=== PATIENT | male | born 1975 | race Caucasian/White ===

== ENCOUNTER 2022-02-01 08:53 | Observation (INO) | payer OTHER, MEDICAID, SELFPAY ==
[2022-02-01] VITALS (13 sets, daily range): BP systolic 101–141; BP diastolic 58–89; PULSE 70–88; RESP 12–24; TEMP 35.6–37.2; O2SAT 91–100; BMI 27.3
--- NOTE | 2022-02-01 09:39 | DI.RAD.S_ITS ---
PROCEDURE: XR HAND LT MIN 3V INDICATIONS: swelling TECHNIQUE: 3 views of the hand(s) acquired. COMPARISON: None. FINDINGS: Bones: No fractures or dislocations. Carpal bones are normally aligned. No suspicious bony lesions. Soft tissues: No suspicious soft tissue calcifications. Soft tissue swelling. No soft tissue gas or radiopaque foreign body. IMPRESSION: Soft tissue swelling. No evidence of gas-forming organism. No acute bony abnormality noted. Dictated by: Ephraim Wilde M.D. on 02/01/2022 at 10:01 Approved by: Ephraim Wilde M.D. on 02/01/2022 at 10:02
--- NOTE | 2022-02-01 10:24 | ED_ITS ---
HPI - Skin/Abscess/Foreign Bdy General Chief complaint: Skin/Abscess/Foreign Body Stated complaint: Infection on both hands Time Seen by Provider: 02/01/22 09:40 Source: patient Mode of arrival: Ambulatory Limitations: no limitations History of Present Illness HPI narrative: 46-year-old male smoker with history of IV drug abuse (last used 1 year ago) presents for evaluation of left hand pain swelling and redness in the absence of injury. He states that about 3 or 4 days ago he started having pain in his and which has worsened until today. He now has significant swelling and large blisters on the dorsum of his hand with red streaks up his arm. He can not make a fist due to pain. He denies any fever or chills. He denies any illicit drug use in the past year. He denies any medical history. He last had solid food at about 8:00 a.m. and has had some water in the aftermath. He had been prescribed Keflex a few days ago but there was some miscommunication and he had been unable to pick remover the prescription Related Data Allergies Allergy/AdvReac Type Severity Reaction Status Date / Time No Known Drug Allergies Allergy Verified 02/01/22 10:42 Review of Systems Review of Systems Narrative: GENERAL: Denies chills, fatigue, malaise, fever, sweats. HEENT: Denies sinus pain, ear pain, sore throat, difficulty swallowing, dizziness. RESPIRATORY: Denies dyspnea, cough, wheezing, hemoptysis, sputum. CARDIOVASCULAR: Denies chest pain, palpitations, orthopnea, edema, GASTROINTESTINAL: Denies nausea, vomiting, abdominal pain, diarrhea, consti pation, melena. : Denies dysuria, frequency, incontinence, hematuria, urinary retention. MUSCULOSKELETAL: See HPI SKIN: See HPI NEUROLOGIC: Denies weakness, headache, numbness, change in speech, confusion, seizures, incoordination. PSYCHIATRIC: No concerning psychosocial issues. 12 point review of systems is negative except for those stated above Patient History Social History household members: none Smoking Status: Current every day smoker alcohol intake: current Smoking Status: Current every day smoker alcohol intake frequency: 0-2 drinks per day Substance Use Type: former substance user Exam Narrative Exam Narrative: GENERAL: [46] year old patient appears stated age. Well-developed patient, in mild distress. GCS 15 HEAD: Atraumatic. Normocephalic. EYES: Pupils equal round and reactive. Extraocular motions intact. No scleral icterus. No injection or drainage. ENT: Nose without bleeding, purulent drainage. Throat without erythema, tonsillar hypertrophy or exudate. Airway patent. NECK: Trachea midline. Non tender CARDIOVASCULAR: Regular rate and rhythm without murmurs, gallops, or rubs. RESPIRATORY: Clear to auscultation. Breath sounds equal bilaterally. No wheezes, rales, or rhonchi. GASTROINTESTINAL: Abdomen soft, non-tender, nondistended. EXTREMITIES: Left hand with significant swelling and erythema particularly on the dorsum of the hand with a few quarter-sized hemorrhagic blisters. He is unable to make a fist secondary to pain, there is pain on palpation of the palmar surface. He does have erythema extending to thirds up the forearm. BACK: Nontender without deformity or crepitance. No flank tenderness. NEURO: AOx3. SKIN: No rash or erythema of visible areas Initial Vital Signs Initial Vital Signs: Vital Signs Temperature 98.8 F 02/01/22 09:33 Pulse Rate 88 02/01/22 09:33 Respiratory Rate 18 02/01/22 09:33 Blood Pressure 141/80 H 02/01/22 09:33 Pulse Oximetry 97 02/01/22 09:33 Oxygen Delivery Method 02/01/22 09:33 Course Orders Ordered: ED Orders 02/01/22 10:23 C-Reactive Protein Quant Stat Complete Blood Count AUTO DIFF Stat Comprehensive Metabolic Panel Stat 02/01/22 10:43 COVID19 -Nasal RAPID/Pre-Proc Stat 02/01/22 11:49 Consult to Anesthesiology Routine 02/01/22 12:00 Blood Culture Stat Erythrocyte Sedimentation Rate Routine Aspirin (Aspirin Ec 81 Mg Tablet) 81 mg PO BID WINNIE Hydromorphone HCl (Hydromorphone 0.5 Mg Inj) 0.5 mg IV Q1H PRN PRN Reason: Pain, Moderate (4-6) Hydromorphone HCl (Hydromorphone 0.5 Mg Inj) 0.2 mg IV Q1H PRN PRN Reason: Pain, Mild (1-3) Lactated Ringer's (Lactated Ringers) 1,000 mls @ 125 mls/hr IV CONT WINNIE Last Admin: 02/01/22 18:35 Dose: 125 mls/hr Documented By: Cefazolin Sodium/Dextrose (Ancef) 100 mls @ 200 mls/hr IV Q8H [facility] Stop: 02/04/22 20:29 Naloxone HCl (Naloxone 0.4 Mg/Ml Vial) 0.2 mg IV Q2MIN PRN PRN Reason: Opiate Reversal Nicotine (Nicotine 14 Patch) 14 mg TOP DAILY [facility] Ondansetron HCl (Ondansetron 4 Mg Odt) 4 mg PO Q4HR PRN PRN Reason: Nausea And Vomiting Ondansetron HCl (Ondansetron 4 Mg/2 Ml Inj) 4 mg IV Q4HR PRN PRN Reason: Nausea And Vomiting Oxycodone HCl (Oxycodone Ir 5 Mg Tablet) 5 mg PO Q3HR PRN PRN Reason: Pain, Mild (1-3) Oxycodone HCl (Oxycodone Ir 10 Mg Tablet) 10 mg PO Q3HR PRN PRN Reason: Pain, Moderate (4-6) Polyethylene Glycol (Polyethylene Glycol 3350 17 Gm Powd.Pack) 17 gm PO DAILY PRN PRN Reason: Constipation Discontinued Medications Fentanyl (Fentanyl 100 Mcg/2 Ml Inj) 0 mcg IV Q5M PRN PRN Reason: Pain, Moderate (4-6) Hydromorphone HCl (Hydromorphone 1 Mg Inj) 1 mg IV Q1H PRN PRN Reason: Pain, Moderate (4-6) Last Admin: 02/01/22 12:04 Dose: 1 mg Documented By: MARTHA Hydromorphone HCl (Hydromorphone 2 Mg Inj) 0 mg IV Q5M PRN PRN Reason: Pain, Moderate (4-6) Hydromorphone HCl (Hydromorphone 1 Mg Inj) 0.2 mg IV Q1H PRN PRN Reason: Pain, Mild (1-3) Hydromorphone HCl (Hydromorphone 1 Mg Inj) 0.5 mg IV Q1H PRN PRN Reason: Pain, Moderate (4-6) Cefazolin Sodium/Dextrose (Ancef) 100 mls @ 200 mls/hr IV NOW ONE Stop: 02/01/22 12:16 Last Infusion: 02/01/22 13:03 Dose: 0 mls/hr Documented By: Admin: 02/01/22 12:30 Dose: 200 mls/hr Documented By: MARTHA Lactated Ringer's (Lactated Ringers) 1,000 mls @ 42 mls/hr IV CONT WINNIE Last Infusion: 02/01/22 15:27 Dose: 0 mls/hr Documented By: Admin: 02/01/22 15:14 Dose: 42 mls/hr Documented By: Infusion: 02/01/22 15:14 Dose: 42 mls/hr Documented By: Admin: 02/01/22 13:39 Dose: 42 mls/hr Documented By: CG Lactated Ringer's (Lactated Ringers) 1,000 mls @ 120 mls/hr IV CONT WINNIE Ondansetron HCl (Ondansetron 4 Mg/2 Ml Inj) 4 mg IV NOW PRN PRN Reason: Nausea And Vomiting Oxycodone HCl (Oxycodone Ir 5 Mg Tablet) 5 mg PO PACUNOW PRN PRN Reason: Mild or moderate pain Consultations Consultation #1: call to Dr. Nicole, after discussion of history and physical exam as well as imaging he states he will come see the patient at the bedside but is preparing to take him to the OR later tonight, he does request medicine consult given his history of opioid abuse Time: 10:27 Vital Signs Vital signs: Vital Signs - 8 hr 02/01/22 09:33 Temperature 98.8 F Pulse Rate 88 Respiratory Rate 18 Blood Pressure 141/80 H Pulse Oximetry 97 Oxygen Delivery Method Room Air MDM - Skin/Abscess/Foreign Bdy Lab Data Result diagrams: 02/01/22 10:23 02/01/22 10:23 Labs: Lab Results 02/01/22 02/01/22 02/01/22 Range/Units 10:23 10:23 10:43 WBC 13.8 H (4.5-11.0) X10^3/uL RBC 4.54 (4.5-5.9) X10^6/uL Hgb 13.1 L (13.5-17.5) g/dL Hct 39.1 L (41-53) % MCV 86.0 (80-100) fL MCH 28.8 (26-34) PG MCHC 33.5 (30-36) % RDW 14.2 (11.6-14.8) % Plt Count 342 (150-400) X10^3/uL Neut % (Auto) 69.0 (50-75) % Lymph % (Auto) 20.3 L (25-40) % Moore % (Auto) 8.0 (3-14) % Eos % (Auto) 2.2 (2-4) % Baso % (Auto) 0.5 (0-2) % Neut # (Auto) 9500 H (2992-8606) /uL Lymph # (Auto) 2800 (5237-8218) /uL Moore # (Auto) 1100 H (0-900) /uL Eos # (Auto) 300 (0-450) /uL Baso # (Auto) 100 (0-100) /uL ESR Cancelled Sodium 135 L (137-145) mmol/L Potassium 4.9 (3.4-5.1) mmol/L Chloride 102 (98-107) mmol/L Carbon Dioxide 23 (22-32) mmol/L BUN 16 (9-20) mg/dL Creatinine 1.16 (0.66-1.25) mg/dL Estimated GFR > 60 (>60) mL/min BUN/Creatinine Ratio 13.8 (6-22) Glucose 121 H (70-100) mg/dL Calcium 8.5 (8.4-10.2) mg/dL Total Bilirubin 1.0 (0.2-1.3) mg/dL AST 33 (17-59) IU/L ALT 20 (<50) IU/L Alkaline Phosphatase 77 (38-126) U/L C-Reactive Protein 3.0 H (<1.0) mg/dL Total Protein 7.7 (6.3-8.2) g/dL Albumin 4.0 (3.5-5.0) g/dL Globulin 3.7 (1.7-4.1) g/dL Albumin/Globulin Ratio 1.1 (1.0-2.8) SARS-CoV-2 (PCR) Negative (Negative) 02/01/22 Range/Units 12:00 WBC (4.5-11.0) X10^3/uL RBC (4.5-5.9) X10^6/uL Hgb (13.5-17.5) g/dL Hct (41-53) % MCV (80-100) fL MCH (26-34) PG MCHC (30-36) % RDW (11.6-14.8) % Plt Count (150-400) X10^3/uL Neut % (Auto) (50-75) % Lymph % (Auto) (25-40) % Moore % (Auto) (3-14) % Eos % (Auto) (2-4) % Baso % (Auto) (0-2) % Neut # (Auto) (3327-0233) /uL Lymph # (Auto) (2654-5938) /uL Moore # (Auto) (0-900) /uL Eos # (Auto) (0-450) /uL Baso # (Auto) (0-100) /uL ESR 40 H Sodium (137-145) mmol/L Potassium (3.4-5.1) mmol/L Chloride (98-107) mmol/L Carbon Dioxide (22-32) mmol/L BUN (9-20) mg/dL Creatinine (0.66-1.25) mg/dL Estimated GFR (>60) mL/min BUN/Creatinine Ratio (6-22) Glucose (70-100) mg/dL Calcium (8.4-10.2) mg/dL Total Bilirubin (0.2-1.3) mg/dL AST (17-59) IU/L ALT (<50) IU/L Alkaline Phosphatase (38-126) U/L C-Reactive Protein (<1.0) mg/dL Total Protein (6.3-8.2) g/dL Albumin (3.5-5.0) g/dL Globulin (1.7-4.1) g/dL Albumin/Globulin Ratio (1.0-2.8) SARS-CoV-2 (PCR) (Negative) Discharge Plan Departure Patient Disposition: Admitted as Observation Clinical Impression: Abscess of hand Admit Date/Time: 02/01/22 12:28 Admit Provider: Monroe Nicole
--- NOTE | 2022-02-01 10:39 | PC.NURSE ---
PIV unsuccessful x2
[2022-02-01 11:02] LABS: Add Manual Diff / Slide Review NO; Basophils Absolute Auto 100 /uL (0-100); Basophils Percent Auto 0.5 % (0-2); Eosinophils Absolute Auto 300 /uL (0-450); Eosinophils Percent Auto 2.2 % (2-4); Hematocrit 39.1 % (41-53); Hemoglobin 13.1 g/dL (13.5-17.5); Lymphocytes Absolute Auto 2800 /uL (1100-4500); Lymphocytes Percent Auto 20.3 % (25-40); Mean Corpuscular HGB Conc 33.5 % (30-36); Mean Corpuscular Hemoglobin 28.8 PG (26-34); Monocytes Absolute Auto 1100 /uL (0-900); Neutrophils Absolute Auto 9500 /uL (1500-7000); Platelet Count 342 X10^3/uL (150-400); Red Blood Cell Count 4.54 X10^6/uL (4.5-5.9); Red Cell Distribution Width 14.2 % (11.6-14.8); White Blood Cell Count 13.8 X10^3/uL (4.5-11.0)
[2022-02-01 11:14] LABS: COVID19 -Nasal RAPID Negative (Negative)
[2022-02-01 11:15] LABS: Alanine Aminotransferase 20 IU/L (<50); Albumin Globulin Ratio 1.1 (1.0-2.8); Alkaline Phosphatase 77 U/L (38-126); Aspartate Aminotransferase 33 IU/L (17-59); BUN Creatinine Ratio 13.8 (6-22); Blood Urea Nitrogen 16 mg/dL (9-20); Calcium 8.5 mg/dL (8.4-10.2); Carbon Dioxide 23 mmol/L (22-32); Chloride 102 mmol/L (98-107); Estimated Glomerular Filt Rate > 60 mL/min (>60); Globulin 3.7 g/dL (1.7-4.1); Glucose 121 mg/dL (70-100); HEMOLYSIS 131 (0-50); Potassium 4.9 mmol/L (3.4-5.1); Sodium 135 mmol/L (137-145); Total Protein 7.7 g/dL (6.3-8.2)
--- NOTE | 2022-02-01 11:38 | PM.HP.1 ---
History of Present Illness History of Present Illness Date Patient Seen: 02/01/22 Time Patient Seen: 11:38 Chief complaint: Infection on both hands Narrative: Mr. Bill is a 46-year-old left-hand dominant gentleman with a history of narcotic use who presents to the emergency room with a 4 day history of significant swelling on the dorsum of his left hand. Orthopedic consultation was obtained for potential drainage of a dorsal abscess. He reports that he has not had fever and chills recently but did about 4 or 5 days ago when he was withdrawing from his methadone. He is actively using fentanyl that he is obtaining on the street by smoking it. He denies any IV access to the left hand. He has also had mild swelling on the right side. He has been NPO since 0 800 this morning for solids. He had a glass of water sometime after that time. Although he is not sure when. Patient History Family & Social History Social History: He currently does have housing in and a [place]. Safety & Behavioral: Feels Safe in Current Yes Environment Been Physically Hurt or No Threatened By a Person Tobacco & Substance use: Smoking Status Current every day smoker alcohol intake frequency 0-2 drinks per day Substance Use Type current substance user, smoking fentanyl Meds Home Medications and Allergies Allergies Allergy/AdvReac Type Severity Reaction Status Date / Time No Known Drug Allergies Allergy Verified 02/01/22 10:42 Review of Systems Review of Systems Narrative: He denies symptoms of infection except while withdrawing from his methadone 4 days ago. He reports a negative HIV test at the last time it was obtained. He is not sure when this was. He admits to current use of fentanyl. The remainder of the review of systems is negative in detail. Exam Vital Signs (past 8 hours): - 02/01/22 09:33 Temperature 98.8 F Pulse Rate 88 Respiratory Rate 18 Blood Pressure 141/80 H Pulse Oximetry 97 Oxygen Delivery Method Room Air Oxygen Delivery Method Room Air Narrative Exam Narrative: On physical examination the patient is seen while lying in his emergency gurney. He appears mildly somnolent. Chest is clear to auscultation. Cardiac exam is regular rate and rhythm no obvious murmurs. Abdomen is soft nontender with normal abdominal bowel sounds no palpable masses. Left upper extremity is notable for significant swelling on the on the dorsum of his hand. There are 3 areas of bloody blisters evident near the metacarpophalangeal joints. The palmar aspect of the hand is mildly swollen but does not appear to be tense. He can open and close his fingers and can have his fingers passively fully extended. There is mild erythema extending proximally up the medial aspect of the forearm. Objective Labs Result Diagrams: 02/01/22 10:23 02/01/22 10:23 Labs: Laboratory Results - last 24 hr 02/01/22 02/01/22 02/01/22 10:23 10:23 10:43 WBC 13.8 H RBC 4.54 Hgb 13.1 L Hct 39.1 L MCV 86.0 MCH 28.8 MCHC 33.5 RDW 14.2 Plt Count 342 Neut % (Auto) 69.0 Lymph % (Auto) 20.3 L [place] % (Auto) 8.0 Eos % (Auto) 2.2 Baso % (Auto) 0.5 Neut # (Auto) 9500 H Lymph # (Auto) 2800 [place] # (Auto) 1100 H Eos # (Auto) 300 Baso # (Auto) 100 ESR Cancelled Sodium 135 L Potassium 4.9 Chloride 102 Carbon Dioxide 23 BUN 16 Creatinine 1.16 Estimated GFR > 60 BUN/Creatinine Ratio 13.8 Glucose 121 H Calcium 8.5 Total Bilirubin 1.0 AST 33 ALT 20 Alkaline Phosphatase 77 Total Protein 7.7 Albumin 4.0 Globulin 3.7 Albumin/Globulin Ratio 1.1 SARS-CoV-2 (PCR) Negative Assessment & Plan Assessment & Plan narrative: The patient has an infection with possible abscess on the dorsum of his hand. He is an active narcotics user. From the surgical standpoint he will undergo an I and D with unroofing of the blisters and exploration to be sure there is no dorsal abscess. It does not appear that there is palmar involvement currently. He will be maintained on IV antibiotics. He does require involvement of the medical team to manage his narcotics withdrawal and antibiotic choices. I have discussed this with Dr. Xiao and he will be requesting a medical consultation. He is agreed to the incision and drainage after discussion the risks benefits and alternatives. Risks discussed included but were not limited to: Failure to improve, stiffness, infection, nerve damage, deep venous thrombosis, pulmonary embolism, stroke, myocardial infarction, permanent paralysis and . COVID-19 COVID-19 status: Negative Result date/Date tested (Pos, Neg/Pending): 02/01/22 Time Spent With Patient Time with patient: 30 to 49 minutes with 50% spent counseling/coordinating care Critical Care time: I spent a total of [] minutes of critical care time on this patient's care today; this time is exclusive of procedural time.
[2022-02-01] MEDS: HYDROMORPHONE 1 MG INJ IV (12:04)
[2022-02-01] MEDS: CEFAZOLIN 2 GM/100 ML PREMIX 100 ML IV ×2 (12:30→19:45)
[2022-02-01] MEDS: LACTATED RINGERS 1,000 ML 42 ML IV ×2 (13:39→15:14)
--- NOTE | 2022-02-01 13:52 | SUR.HOLD ---
Patient unable to void since 0630 this morning and states he's been having trouble voiding over the last few days; bladder scan 530 mls; Dr Nicole and OR nurse Bita made aware. Bowers catheter ordered for intraoperative care.
--- NOTE | 2022-02-01 14:28 | SUR.OPER ---
Supine on padded OR bed, head on pillow, arms secured on padded arm boards at <90 degrees abduction, legs uncrossed, safety belt at thigh, tape over blanket over lower legs. Left hand prepped and draped in field on armboard.
--- NOTE | 2022-02-01 14:57 | PM.OP.1 ---
Operative Date/Time/Diagnoses Date of procedure: 02/01/22 Time of procedure: 14:57 Pre-op diagnosis: Left hand abscess Post-op diagnosis: other (Left hand infected blisters and cellulitis) Procedure & Clinicians Procedure: Incision and drainage of left hand. Same procedure as scheduled: Yes Indications: The patient is a 46-year-old gentleman who has had cellulitis and swelling of his left hand for at least 4 days. He is developed prominent blisters on the dorsum of his hand. There is concern that he has an underlying abscess. He is agreed to drainage of this after discussion the risks benefits and alternatives. Risks discussed are described in detail in my preoperative history and physical note. Surgeon: Monroe Nicole Click Yes if Unassisted: Yes Anesthesia Type: General Operative Notes Findings: Infected blood blisters on the dorsum of the hand with no evidence of sinus tracts going deeper. Significant edema in the dorsum of the hand but no return of purulent fluid upon aspiration. Closure Type: not applicable Specimen(s): other (Two swabs were sent for culture) Estimated Blood Loss (mL): 2 Blood products transfused: none Tourniquet time (min): 9 Procedure in detail: The patient was seen in the preoperative area where he identified his left hand as the operative site this was marked with my initials. He was taken to the operating room and placed in the operating room table in a supine position where he underwent induction with general anesthetic. He had received preoperative antibiotics in the preoperative area. A tourniquet was placed about his proximal left arm. A time motion analyst-out was performed. The left arm was prepared from the fingertips to the tourniquet with Betadine in the usual fashion draped through sterile drapes. The arm was elevated to exsanguinated and the tourniquet inflated to 250 mmHg. Initially I unroofed the blisters with sharp debridement and explored the bases. There did not appear to be any sinus tracts underlying these. The bases were extensively debrided with soft debridement using a sponge. They were then irrigated with a L of sterile saline solution. An 18 gauge needle was then used to aspirate the area of maximum induration on the dorsum of the hand to ensure there was no abscess in that area and no fluid was returned. The palm of the hand was extensively palpated and it was soft and although mildly swollen did not appear to have any infection. At this point wounds were dressed with Xeroform, sterile 4x4s cast padding and an August wrap. The tourniquet was deflated during dressing placement. The patient was taken to recovery in good condition having tolerated the procedure well. Complications: none Post-operative Condition: stable Disposition: PACU Plan for aftercare: The patient will be admitted to the hospital and maintained on IV antibiotics with strict elevation of the hand to address the cellulitis. The medical service will be involved to help with his withdrawal symptoms and management of his methadone as well as antibiotic choices. He likely will be discharged after 2 or 3 days on oral antibiotics. We will initiate wet-to-dry dressing changes on postop day 2.
[2022-02-01 17:19] LABS: Erythrocyte Sedimentation Rate 40 MM/HR (0-15)
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
[2022-02-01] MEDS: LACTATED RINGERS 1,000 ML 125 ML IV (18:35)
[2022-02-01 19:40] LABS: Appearance Urine UA CLEAR; Bilirubin Urine UA NEGATIVE (NEGATIVE); Color Urine UA YELLOW; Glucose Urine UA NEGATIVE (Negative); Ketones Urine UA NEGATIVE (NEGATIVE); Leukocyte Esterase Urine UA TRACE (NEGATIVE); Nitrite Urine UA NEGATIVE (Negative); Occult Blood Urine UA NEGATIVE (Negative); Protein Urine UA NEGATIVE (Negative); Urobilinogen Urine UA 0.2 E.U./dL (0.2)
[2022-02-01 20:20] LABS: Bacteria Urine None Seen; Culture Indicated Urine Specimen Cultured; RBC Urine None Seen (0-5/HPF); Squamous Epithelial Cell Urine None Seen (0-5/HPF); WBC Urine None Seen (0-5/HPF)
[2022-02-01] MEDS: ASPIRIN EC 81 MG TABLET PO (22:30)
[2022-02-01] MEDS: HYDROMORPHONE 0.5 MG INJ IV (22:33)
[2022-02-02 02:00] VITALS: BP 112/56; PULSE 74; RESP 19; TEMP 36.3; O2SAT 99
[2022-02-02] MEDS: LACTATED RINGERS 1,000 ML 125 ML IV ×2 (03:08→10:45)
[2022-02-02] MEDS: CEFAZOLIN 2 GM/100 ML PREMIX 100 ML IV ×2 (04:09→11:56)
[2022-02-02 05:00] VITALS: BP 99/56; PULSE 73; RESP 19; TEMP 36.8; O2SAT 94
[2022-02-02 05:43] LABS: Hematocrit 35.8 % (41-53); Hemoglobin 11.9 g/dL (13.5-17.5); Mean Corpuscular HGB Conc 33.2 % (30-36); Mean Corpuscular Hemoglobin 28.7 PG (26-34); Mean Corpuscular Volume 86.5 fL (80-100); Platelet Count 309 X10^3/uL (150-400); Red Blood Cell Count 4.14 X10^6/uL (4.5-5.9); Red Cell Distribution Width 13.8 % (11.6-14.8)
[2022-02-02 07:50] VITALS: BP 105/61; PULSE 78; RESP 18; TEMP 36.9; O2SAT 96
--- NOTE | 2022-02-02 07:57 | PM.PN.1 ---
Exam Vital Signs (past 8 hours): - 02/02/22 02:00 02/02/22 05:00 02/02/22 07:50 Temperature 97.4 F L 98.2 F 98.4 F Pulse Rate 74 73 78 Respiratory Rate 19 19 18 Blood Pressure 112/56 L 99/56 L 105/61 Pulse Oximetry 99 94 96 Oxygen Flow Rate 0 Oxygen Delivery Method Room Air Oxygen Flow Rate 0 Objective Labs Result Diagrams: 02/02/22 05:02 02/01/22 10:23 Labs: Laboratory Results - last 24 hr 02/01/22 02/01/22 02/01/22 10:23 10:23 10:43 WBC 13.8 H RBC 4.54 Hgb 13.1 L Hct 39.1 L MCV 86.0 MCH 28.8 MCHC 33.5 RDW 14.2 Plt Count 342 Neut % (Auto) 69.0 Lymph % (Auto) 20.3 L [place] % (Auto) 8.0 Eos % (Auto) 2.2 Baso % (Auto) 0.5 Neut # (Auto) 9500 H Lymph # (Auto) 2800 [place] # (Auto) 1100 H Eos # (Auto) 300 Baso # (Auto) 100 ESR Cancelled Sodium 135 L Potassium 4.9 Chloride 102 Carbon Dioxide 23 BUN 16 Creatinine 1.16 Estimated GFR > 60 BUN/Creatinine Ratio 13.8 Glucose 121 H Calcium 8.5 Total Bilirubin 1.0 AST 33 ALT 20 Alkaline Phosphatase 77 C-Reactive Protein 3.0 H Total Protein 7.7 Albumin 4.0 Globulin 3.7 Albumin/Globulin Ratio 1.1 Urine Color Urine Appearance Urine pH Ur Specific [place] Urine Protein Urine Glucose (UA) Urine Ketones Urine Occult Blood Urine Nitrate Urine Bilirubin Urine Urobilinogen Ur Leukocyte Esterase Urine RBC Urine WBC Ur Squamous Epith Cells Urine Bacteria Ur Culture Indicated? SARS-CoV-2 (PCR) Negative 02/01/22 02/01/22 02/02/22 12:00 19:30 05:02 WBC 15.0 H RBC 4.14 L Hgb 11.9 L Hct 35.8 L MCV 86.5 MCH 28.7 MCHC 33.2 RDW 13.8 Plt Count 309 Neut % (Auto) Lymph % (Auto) [place] % (Auto) Eos % (Auto) Baso % (Auto) Neut # (Auto) Lymph # (Auto) [place] # (Auto) Eos # (Auto) Baso # (Auto) ESR 40 H Sodium Potassium Chloride Carbon Dioxide BUN Creatinine Estimated GFR BUN/Creatinine Ratio Glucose Calcium Total Bilirubin AST ALT Alkaline Phosphatase C-Reactive Protein Total Protein Albumin Globulin Albumin/Globulin Ratio Urine Color Yellow Urine Appearance Clear Urine pH 7.0 Ur Specific [place] 1.010 Urine Protein Negative Urine Glucose (UA) Negative Urine Ketones Negative Urine Occult Blood Negative Urine Nitrate Negative Urine Bilirubin Negative Urine Urobilinogen 0.2 Ur Leukocyte Esterase Trace H Urine RBC None seen Urine WBC None seen Ur Squamous Epith Cells None seen Urine Bacteria None seen Ur Culture Indicated? Specimen cultured SARS-CoV-2 (PCR) [facility] Social History household members: none Smoking Status: Current every day smoker alcohol intake: current Assessment & Plan Assessment & Plan narrative: 1. Left hand cellulitis with superimposed blisters Patient to go to the operating room for incision and drainage as well as cultures.? He has been initiated on Ancef.? He denies any prior history of MRSA.? He is received Ancef in the emergency department and this will likely be continued.? Ongoing management per Orthopedic surgery.? No concern for endocarditis.? Afebrile, no systemic symptoms.? Blood cultures have been drawn and are pending. 2. Polysubstance dependence Patient is actively using methamphetamines and fentanyl, smoking both.? In addition he is on methadone maintenance.? Is likely drowsy due to coming down from methamphetamine use.? I would expect that to continue for up to 24 hours.? Await confirmation of his methadone dose through formal channels.? Will plan to restart his methadone maintenance once his medication reconciliation has been completed.? In the interim continue with as needed IV Dilaudid as already ordered.? We will send an HIV and hepatitis panels. 3. Tobacco dependence Nicotine patch will be ordered. 4. Leukocytosis Likely due to acute cellulitis. 5. Normocytic anemia Mild.? Will follow. 6.? Report of hypertension Patient reports possible underlying hypertension.? Blood pressures are normotensive here.? Will follow. 7. Urinary retention Patient reports he has had difficulty emptying his bladder over the last year.? He reports he does not feel he is fully voiding.? Will send a urinalysis as well. ? Code status Full Prophylaxis Per Orthopedic surgery Disposition Admitting to the inpatient unit under observation status. Time Spent With Patient Critical Care time: I spent a total of [] minutes of critical care time on this patient's care today; this time is exclusive of procedural time. Quality VTE Deep Vein Thrombosis/Pulmonary Embolism Present on Admission: No
--- NOTE | 2022-02-02 08:40 | PM.PNPO.1 ---
Subjective Subjective Date Patient Seen: 02/02/22 Time Patient Seen: 08:40 Interval history: The patient reports his pain is reasonably well controlled however he is asking for his methadone for withdrawal. Exam Vital Signs (past 8 hours): - 02/02/22 02:00 02/02/22 05:00 02/02/22 07:50 Temperature 97.4 F L 98.2 F 98.4 F Pulse Rate 74 73 78 Respiratory Rate 19 19 18 Blood Pressure 112/56 L 99/56 L 105/61 Pulse Oximetry 99 94 96 Oxygen Flow Rate 0 Oxygen Delivery Method Room Air Oxygen Flow Rate 0 Narrative Exam Narrative: Left upper extremity wound is dressed. There is less proximal erythema in the forearm. He has no significant pain on passive or active range of motion of his fingers. Objective Labs Result Diagrams: 02/02/22 05:02 02/01/22 10:23 Labs: Laboratory Results - last 24 hr 02/01/22 02/01/22 02/01/22 10:23 10:23 10:43 WBC 13.8 H RBC 4.54 Hgb 13.1 L Hct 39.1 L MCV 86.0 MCH 28.8 MCHC 33.5 RDW 14.2 Plt Count 342 Neut % (Auto) 69.0 Lymph % (Auto) 20.[address] [place] % (Auto) 8.0 Eos % (Auto) 2.2 Baso % (Auto) 0.5 Neut # (Auto) 9500 H Lymph # (Auto) 2800 [place] # (Auto) 1100 H Eos # (Auto) 300 Baso # (Auto) 100 ESR Cancelled Sodium 135 L Potassium 4.9 Chloride 102 Carbon Dioxide 23 BUN 16 Creatinine 1.16 Estimated GFR > 60 BUN/Creatinine Ratio 13.8 Glucose 121 H Calcium 8.5 Total Bilirubin 1.0 AST 33 ALT 20 Alkaline Phosphatase 77 C-Reactive Protein 3.0 H Total Protein 7.7 Albumin 4.0 Globulin 3.7 Albumin/Globulin Ratio 1.1 Urine Color Urine Appearance Urine pH Ur Specific [place] Urine Protein Urine Glucose (UA) Urine Ketones Urine Occult Blood Urine Nitrate Urine Bilirubin Urine Urobilinogen Ur Leukocyte Esterase Urine RBC Urine WBC Ur Squamous Epith Cells Urine Bacteria Ur Culture Indicated? SARS-CoV-2 (PCR) Negative 02/01/22 02/01/22 02/02/22 12:00 19:30 05:02 WBC 15.0 H RBC 4.14 L Hgb 11.9 L Hct 35.8 L MCV 86.5 MCH 28.7 MCHC 33.2 RDW 13.8 Plt Count 309 Neut % (Auto) Lymph % (Auto) [place] % (Auto) Eos % (Auto) Baso % (Auto) Neut # (Auto) Lymph # (Auto) [place] # (Auto) Eos # (Auto) Baso # (Auto) ESR 40 H Sodium Potassium Chloride Carbon Dioxide BUN Creatinine Estimated GFR BUN/Creatinine Ratio Glucose Calcium Total Bilirubin AST ALT Alkaline Phosphatase C-Reactive Protein Total Protein Albumin Globulin Albumin/Globulin Ratio Urine Color Yellow Urine Appearance Clear Urine pH 7.0 Ur Specific [place] 1.010 Urine Protein Negative Urine Glucose (UA) Negative Urine Ketones Negative Urine Occult Blood Negative Urine Nitrate Negative Urine Bilirubin Negative Urine Urobilinogen 0.2 Ur Leukocyte Esterase Trace H Urine RBC None seen Urine WBC None seen Ur Squamous Epith Cells None seen Urine Bacteria None seen Ur Culture Indicated? Specimen cultured SARS-CoV-2 (PCR) [facility] Social History household members: none Smoking Status: Current every day smoker alcohol intake: current Assessment & Plan Post-op Postoperative Procedures: Procedures Operation Date: 02/01/22 15:15 Actual Procedure Side Surgeon p hand abscess I&D Left Monroe Nicole MD Postoperative day: 1 Postoperative status: doing well Postoperative status narrative: He is stable postoperative day 1 status post incision and drainage of infected blisters on the dorsum of his left hand. His surrounding cellulitis appears to be slightly improved this morning. Gram stain returned with no organisms and no white cells. Cultures are pending. He also has a history of ongoing narcotics use which is partially being treated with the methadone program but he is also actively using street fentanyl. Postoperative plan: routine post-op care Postoperative plan narrative: With respect to the hand we will continue his IV Ancef. I will anticipate starting wet-to-dry dressing changes on the blister bases tomorrow. We will follow his culture results. The care of his withdrawal symptoms and his methadone is being addressed by the medical service. I anticipate likely discharge by Friday. Time Spent With Patient Time with patient: less than 15 minutes Quality VTE Deep Vein Thrombosis/Pulmonary Embolism Present on Admission: No
[2022-02-02] MEDS: NICOTINE 14 PATCH 14 MG TOP (09:44)
[2022-02-02] MEDS: ASPIRIN EC 81 MG TABLET PO (09:44)
[2022-02-02] MEDS: HYDROMORPHONE 0.5 MG INJ IV ×3 (09:44→11:55)
--- NOTE | 2022-02-02 10:15 | PT.IIE ---
Surgery Performed Operation Date: 02/01/22 15:15 Actual Procedures p hand abscess I&D(Left) - Monroe Nicole MD Physical Therapy Inpatient Evaluation/Re-Eval M1 PT/OT-IP Prior Functional Status Start: 02/02/22 12:16 Freq: NEEDED Status: Active Protocol: Document 02/02/22 10:15 AB (Rec: 02/02/22 12:24 AB [id number]) Medical Review Prior Functional Status Medical History Reviewed Yes Communication able to make needs known Mobility and Gait pt stated that he is independent with all mobilities and ambulation without AD Social History Household Members none Living Arrangements Apartment/Condo Number of Floors (Floors) One Floor Number of Stairs To Enter/Railing? 15 steps B rails to get to his apartment Home Environment Standard Height Toilet,Walk in Shower Home Equipment Hand Held Shower M2 PT-IP Current Condition Start: 02/02/22 12:16 Freq: NEEDED Status: Active Protocol: Document 02/02/22 10:15 AB (Rec: 02/02/22 12:24 AB [email or web address]) Physical Therapy Current Condition Current Condition Evaluation Date 02/02/22 Treatment Diagnosis L hand cellulitis s/p I&D; difficulty in walking Onset Date 02/01/22 M3 PT-IP Subjective Start: 02/02/22 12:16 Freq: NEEDED Status: Active Protocol: Document 02/02/22 10:15 AB (Rec: 02/02/22 12:24 AB [email or web address]) Subjective Physical Therapy Visit Type Type Initial Evaluation Visit Start Time 10:15 Visit Stop Time 10:25 Total Visit Minutes 10 Number of RULING MACHINE FEEDER Visits 0 Physical Therapy Visit Comments Patient Comments agreeable to do PT Therapy Pain Assessment Pain Present Pain Present Denied Pain M4 PT-IP Mobility and Gait Start: 02/02/22 12:16 Freq: NEEDED Status: Active Protocol: Document 02/02/22 10:15 AB (Rec: 02/02/22 12:24 AB [email or web address]) PT-Bed Mobility Assessment Supine to Sit Supine to Sit Independent Sit to Supine Sit to Supine Independent PT-Transfer Assessment Sit to and From Stand Sit to and from Stand Independent Equipment Transfer Assistive Device None Orthotic/Prosthetic Devices or Brace: No Comments Mobility Comments pt can be impulsive. completed bed mobility independent and ambulated in room without AD independent. completed up/down step stool using 1 rail SBA for safety but completed with good stability. pt requested to go back to bed. positioned in bed. call light and table placed within reach. no further PT intervention needed at this time. pt agreed . nurse informed. Gait Assessment Gait Gait Assistance Required: Independent Distance (Feet) 40 Able to Maintain Weight Bearing Status Yes During Gait Assistive Devices Assistive Device None Stair Climbing Assessment Evaluation Level of Assist On Stairs Independent Devices Stair Climbing Assistive Devices Left Railing Technique/Endurance Stair Climbing Direction Ascend and Descend Stair Climbing Technique Step to Step Number of Steps Climbed 1 Query Text: Stair Climbing Set # Repetitions (reps) 4 PT-Balance Assessment Sitting Balance and Reactions Static Sitting Balance Ability Normal Dynamic Sitting Balance Ability Normal Standing Balance and Reactions Static Standing Balance Ability Good Dynamic Standing Balance Ability Good Device Used without AD M5 PT-IP Objective Assessments Start: 02/02/22 12:16 Freq: NEEDED Status: Active Protocol: Document 02/02/22 10:15 AB (Rec: 02/02/22 12:24 AB [email or web address]) Orientation Orientation/Cognition Level of Alertness Alert Orientation Name,Place,Situation Language Function Ability No Deficits Noted Safety Awareness Decreased Safety Awareness Memory Description No Deficits Noted Gross Range of Motion Lower Extremity ROM Assessment Within Functional Limits Strength Lower Extremity Strength Assessment Within Functional Limits Muscle Tone Muscle Tone WNL Yes M6 PT-IP Treatment Start: 02/02/22 12:16 Freq: NEEDED Status: Active Protocol: Document 02/02/22 10:15 AB (Rec: 02/02/22 12:24 AB [email or web address]) Physical Therapy Treatment Education Education Provided Safety M7 PT-IP Assessment and Plan Start: 02/02/22 12:16 Freq: NEEDED Status: Active Protocol: Document 02/02/22 10:15 AB (Rec: 02/02/22 12:24 AB [email or web address]) PT Summary Assessment and Plan Potential Rehabilitation Potential Fair Status of Condition at Evaluation Stable Summary Assessment Summary PT eval completed and no further PT intervention indicated at this time. pt is independent with ambulation without AD. Frequency of Treatment Frequency Of Treatment Discharge Recommendations To Nursing Amount of Assist Needed Standby Assistance Discharge Recommendations PT Discharge Recommendations Home Transportation Needs at Discharge Private Vehicle
--- NOTE | 2022-02-02 10:33 | PC.NURSE ---
Spoke to SANDIP Arias from [facility]. She confirmed that the pt is currently taking 116mg daily. The pt's last dose was yesterday, 02/01/22 in the morning. SANDIP Arias can be reached at [phone] ext. [phone].
[2022-02-02] MEDS: METHADONE INTENSOL 10 MG/ML ORAL.CONC 116 MG PO (10:59)
[2022-02-02] MEDS: OXYCODONE IR 10 MG TABLET PO (11:55)
[2022-02-02 12:27] VITALS: BP 110/72; PULSE 75; RESP 17; TEMP 36.6; O2SAT 97
--- NOTE | 2022-02-02 13:27 | CM.DANOTE ---
DCP: Case received, EMR reviewed and met with patient. Introduced self and role. Was able to obtain some information regarding patient's history. DCP assessment completed with information currently available. Patient is a 46 year old male who admitted yesterday afternoon to the care of the hospitalist team. PCP: None, but is active at [facility]. Payer: confirmed: [employer] Options/Medicaid. Patient came to the hospital via private vehicle secondary to having left hand pain and swelling with some blisters and streaks up to his arm. Notes indicate that patient had been seen, given prescription for Keflex, had not picked up prescription. Patient has history of narcotic use, and is currently active at [facility] for Methadone treatments. Notes indicate that if patient can't get his Methadone, he uses Fentanyl and Methamphetamines. Notes indicate that patient should be here until Friday for IV ABO. Met with patient in his room. He is alert and oriented, wanting his Methadone. He resides here in [place], takes the bus to the [facility]. He is independent at baseline. P: DCP to continue to follow. Plan is home, most likely, Friday. Ida Jarvis RN/Farmworker Machine Discharge Planning/Care Management Advanced directive, confirm from FAMILY Start: 02/01/22 16:21 Freq: Q24H Status: Active Protocol: Document 02/01/22 16:21 MS (Rec: 02/01/22 17:31 MS [id number]) Advance Directive, confirm on record Time 16:22 Person contacted pt refuesed Copy received No CM Discharge Assessment Start: 02/02/22 13:26 Freq: Status: Active Protocol: Document 02/02/22 13:26 (Rec: 02/02/22 13:27 [id number]) Discharge Planning Assessment Assigned Ballistic Technician Ida Jarvis RN/Farmworker Machine Advance Directives? No Advance Directives on File No History Provided By Patient,Medical Record Prior Living Arrangements Apartment/Condo Household Members none Type of transporation used prior to Public Transportation admit Comment Uses the [employer] bus Independent with ADL's Yes Is patient alert and oriented? Yes Caregiver for Another No Barriers to Discharge No Discharge Plan Home Transportation Arrangement Bus Referrals Initiated None needed Whiteboard Updated in Patient Room with Yes name and ext. # of Ballistic Technician Review Status In Process Next Review Type Continued Stay Review
--- NOTE | 2022-02-02 14:14 | PC.NURSE ---
Pt stated that he was going to leave after he got this IV abx this morning. Pt also informed the hospitalist, Dr. Blake, about this. Spoke with Dr. Blake about the pt and the plan was to try to get keep the pt here in the hospital if he would stay willingly to get the full course of abx. At approximately 10AM this RN informed the pt he would get his abx around noon as scheduled. The pt repeated that he was going to leave after the abx were finished. Pt asked around 10:40 if he were to pull out the sorto catheter by himself if the process would be painful, this RN explained that it would be painful to remove a sorto cath if the balloon was not deflated that the one could potentialy cause harm to his urethra to which the pt settled down for a little bit. When the abx where hung at approximately noon the pt became even more adamant that he was leaving after the abx were finished and that he would rip out his IV and pull out his sorto cath by himself if needed. Spoke to the pt at approximately 13:10 and asked the pt if there was anything that would be done that would make it possible/more comfortable for him to stay in the hospital. Pt stated that he just couldn't be cooped up in a hospital room for days and that he would go into withdrawals and he didn't want. Informed the pt that this RN would talk to the providers about changing his pain medication, eventually got the pt his methadone after confirming his correct dose this morning and he was given his 116 mg of methadone at approx. 11AM. Antibiotics were hung at 11:55AM. At 1315 spoke with the pt and despite explaining why it was important to stay and what could happen if he left including the losing his hand, the pt still wanted to go. Called the surgeon, Dr. Nicole at 1325 and left a voicemail. Dr. Nicole returned my call at 1331 and said that the hospitalist, Dr. Blake, would the provider taking care of the pt's pain control and his methadone dosing. After speaking with Dr. Nicole, this RN went and spoke with Dr. Blake, said the pt can leave. This RN removed the pt's sorto cath and IV, both tips were intact. Called pharmacy to confirm that the pt did not have any home medications in the pharmacy, Anna in the pharmacy confirmed there were no home meds for the pt. Went over discharge instructions with the pt and informed the pt of when to seek care at the closest ED, when to follow up with Dr. Nicole, and what to watch out for such has fevers, chills, night, sweat, foul/purulent drainage from the wounds which the pt verbalized understanding to. Informed Dr. Blake that the pt had left at 14:04 today. Called and informed Dr. Nicole at 14:09 that the pt had left today at 14:04. Pt took his cellphone, upper dentures, clothes, coat, shoes, and his antibiotics with him when he felt the hospital. This RN walked the pt out.
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
[2022-02-06 16:10] LABS: HBsAg Screen Negative (Negative); Hepatitis A Antibody IgM Negative (Negative); Hepatitis B Core Antibody IgM Negative (Negative); Hepatitis C Quant HCV Not Detected IU/mL (.)
== END 2022-02-02 14:04 | disposition home or self-care (01) | DRG 383 ==
LOC: ED 11:04 → AC 13:20
PROVIDERS: Family Medicine; Admitting Provider Orthopaedic Surgery; Emergency Provider Emergency Medicine; Referring Provider Emergency Medicine; Visit Provider Orthopaedic Surgery
PROC: (CPT 10140; principal; 2022-02-01 15:15)
DX: L03.114 Cellulitis of left upper limb (principal); F17.200 Nicotine dependence, unspecified, uncomplicated; F15.20 Other stimulant dependence, uncomplicated; F11.20 Opioid dependence, uncomplicated; R33.9 Retention of urine, unspecified; Z20.822 Contact with and (suspected) exposure to COVID-19; Z53.29 Procedure and treatment not carried out because of patient's decision for other reasons
CPT/HCPCS: 10140; 36415; 73130; 80053; 80074; 81001; 85025; 85027; 85651; 86140; 87040; 87070; 87075; 87086; 87147; 87205; 87535; 87538; 87635; 96365; 96375; 97161; 99284; C9803; G0378; J0330; J0690; J1100; J1170; J2250; J2405; J2704; J3010

== ENCOUNTER 2022-02-21 00:31 | Emergency (ER) | payer OTHER, MEDICAID, SELFPAY ==
[2022-02-01 15:38] VITALS: BMI 27.3
[2022-02-21 00:38] VITALS: BP 136/90; PULSE 102; RESP 18; TEMP 36.6; O2SAT 97; BMI 27.3
--- NOTE | 2022-02-21 01:15 | ED.SKABFB ---
HPI - Skin/Abscess/Foreign Bdy General Chief complaint: Skin/Abscess/Foreign Body Stated complaint: LEFT LEG INFECTION Time Seen by Provider: 02/21/22 01:09 Source: patient Mode of arrival: Ambulatory Limitations: no limitations History of Present Illness HPI narrative: Patient is a 46-year-old male who is a known IV drug abuser who is here for evaluation of a redness and ulceration to his left lower extremity. He was recently admitted to this hospital and subsequently left against medical advice after having an operation for an infection of his left hand. He states that the redness on his left lower extremity has been worsening over the past couple days. He does admit to currently using meth and also heroin. Related Data Previous Rx's Medication Instructions Recorded cephalexin 500 mg capsule 500 mg PO QID 7 days #28 caps 02/21/22 Allergies Allergy/AdvReac Type Severity Reaction Status Date / Time No Known Drug Allergies Allergy Verified 02/01/22 10:42 Review of Systems Constitutional Constitutional: Reports system reviewed and no additional complaints, except as documented Musculoskeletal Musculoskeletal: Reports system reviewed and no additional complaints, except as documented Integumentary/Breasts Skin/Breast: Reports system reviewed and no additional complaints, except as documented Hematologic/Lymphatic On Anticoagulants: No Patient History Social History household members: none Smoking Status: Current every day smoker alcohol intake: current Smoking Status: Current every day smoker alcohol intake frequency: 0-2 drinks per day Substance Use Type: opiates, methamphetamine and prescription drug Exam Initial Vital Signs Initial Vital Signs: Vital Signs Temperature 98 F 02/21/22 00:38 Pulse Rate 102 H 02/21/22 00:38 Respiratory Rate 18 02/21/22 00:38 Blood Pressure 136/90 02/21/22 00:38 Pulse Oximetry 97 02/21/22 00:38 Oxygen Delivery Method 02/21/22 00:38 Const General: disheveled HENMT Head: normal to inspection and normocephalic Skin Other: Patient has a ulceration that is about the size of a quarter on the anterior lateral aspect of his left lower extremity. There is some drainage from the area. A very small amount of redness. There is a area that is approximately the size of a dime just superior to this that is not ulcerated but is red. There is no induration. Extrem Other: Mild swelling to the left lower extremity compared to the right. Course Orders Ordered: ED Orders 02/21/22 01:10 Wound Culture and Gram Stain Stat Discontinued Medications Cephalexin HCl (Cephalexin 250 Mg Capsule) 500 mg PO NOW ONE Stop: 02/21/22 01:17 Last Admin: 02/21/22 01:21 Dose: 500 mg Documented By: JENNIFER Vital Signs Vital signs: Vital Signs - 8 hr 02/21/22 00:38 Temperature 98 F Pulse Rate 102 H Respiratory Rate 18 Blood Pressure 136/90 Pulse Oximetry 97 Oxygen Delivery Method Room Air MDM - Skin/Abscess/Foreign Bdy MDM Narrative Medical decision making narrative: Patient does have a ulceration on the anterior portion of his left lower extremity with small amount of surrounding erythema. There is no defined abscess felt in the exam. A culture was obtained. Will start the patient on antibiotics. Was given 1st dose here in the ER. He was given a print out of a prescription per his request. He was given return precautions and follow-up instructions. He expressed understanding and agreement plan. Discharge Plan Departure Patient Disposition: Home Clinical Impression: Cellulitis Instructions: DI for Cellulitis -- Adult Activity Restrictions/Additional Instructions: Please take the antibiotics as directed. You can shower like normal. Return to the emergency department for any new symptoms. Prescriptions: New cephalexin 500 mg capsule 500 mg PO QID 7 Days Qty: 28 0RF Stand Alone Forms: Patient Portal/API
[2022-02-21] MEDS: cephALEXin 250 MG CAPSULE 500 MG PO (01:21)
== END 2022-02-21 01:25 | disposition home or self-care (01) ==
PROVIDERS: Emergency Provider Emergency Medicine
DX: L03.116 Cellulitis of left lower limb (principal)
CPT/HCPCS: 87070; 87075; 87077; 87147; 87186; 87205; 99283

== ENCOUNTER 2023-06-22 16:49 | Emergency (ER) | payer OTHER, MEDICAID, SELFPAY ==
[2022-02-01 15:38] VITALS: BMI 27.3
[2023-06-22 17:10] VITALS: BP 129/75; PULSE 89; RESP 18; TEMP 36.6; O2SAT 98; BMI 28.1
--- NOTE | 2023-06-22 19:30 | ED.EXTPRO ---
HPI - Extremity Problem General Chief complaint: Extremity Problem,Nontraumatic Stated complaint: foot swelling, joints ache weakness Time Seen by Provider: 06/22/23 18:06 Source: patient Mode of arrival: Wheelchair History of Present Illness HPI Narrative: Patient is a 48-year-old male who his a fentanyl and meth user who is here for evaluation of swelling to his left foot and ankle. He did recently have a [address] ride. He denies any specific trauma. No history of gout. No fevers. No chest pain. No shortness of breath. Discomfort with walking or putting any pressure on his foot. Related Data Previous Rx's Medication Instructions Recorded doxycycline hyclate 100 mg tablet 100 mg PO BID 10 days #20 tabs 06/22/23 Allergies Allergy/AdvReac Type Severity Reaction Status Date / Time No Known Drug Allergies Allergy Verified 06/22/23 17:18 Review of Systems Review of Systems Narrative: See HPI Patient History Social History household members: none Smoking Status: Current every day smoker alcohol intake: current Smoking Status: Current every day smoker alcohol intake frequency: 0-2 drinks per day Substance Use Type: opiates, methamphetamine and prescription drug Exam Initial Vital Signs Initial Vital Signs: Vital Signs Temperature 97.8 F 06/22/23 17:10 Pulse Rate 89 06/22/23 17:10 Respiratory Rate 18 06/22/23 17:10 Blood Pressure 129/75 06/22/23 17:10 Pulse Oximetry 98 06/22/23 17:10 Oxygen Delivery Method Room Air 06/22/23 17:10 Const General: disheveled and No ill appearing HENMT Head: normal to inspection and normocephalic Resp Effort & Inspection: normal respiratory effort Cardio Pulses: dorsalis pedis present bilaterally Skin Other: Mild erythema to the left foot and ankle. No vesicles. Neuro Sensory Exam: no sensory deficits noted Extrem Other: Swelling to the left ankle and foot. No calf tenderness. Is able to flex and extend the ankle. Course Orders Ordered: ED Orders 06/22/23 19:30 XR ankle LT min 3V Stat XR foot LT min 3V Stat 06/22/23 19:34 US periph venous low extrem lt Stat 06/22/23 19:40 C-Reactive Protein Quant Stat Complete Blood Count AUTO DIFF Stat Comprehensive Metabolic Panel Stat D Dimer Stat Lactate (Lactic Acid) Stat Lipase Stat Procalcitonin Stat Uric Acid Stat 06/22/23 20:10 Erythrocyte Sedimentation Rate Stat Discontinued Medications Doxycycline Hyclate (Doxycycline Hyclate 100 Mg Tablet) 100 mg PO NOW ONE Stop: 06/22/23 21:17 Last Admin: 06/22/23 21:45 Dose: 100 mg Documented By: KAITLIN Vital Signs Vital signs: Vital Signs - 8 hr 06/22/23 17:10 06/22/23 21:44 Temperature 97.8 F 98.9 F Pulse Rate 89 82 Respiratory Rate 18 20 Blood Pressure 129/75 126/85 Pulse Oximetry 98 96 Oxygen Delivery Method Room Air Room Air MDM - Extremity (Nontraumatic) Lab Data 06/22/23 19:40 06/22/23 19:40 Labs: Lab Results 06/22/23 06/22/23 Range/Units 19:40 20:10 WBC 12.6 H (4.5-11.0) X10^3/uL RBC 4.94 (4.5-5.9) X10^6/uL Hgb 14.0 (13.5-17.5) g/dL Hct 41.2 (41-53) % MCV 83.4 (80-100) fL MCH 28.2 (26-34) PG MCHC 33.9 (30-36) % RDW 13.9 (11.6-14.8) % Plt Count 532 H (150-400) X10^3/uL Neut % (Auto) 73.3 (50-75) % Lymph % (Auto) 16.9 L (25-40) % [place] % (Auto) 6.5 (3-14) % Eos % (Auto) 2.6 (2-4) % Baso % (Auto) 0.7 (0-2) % Neut # (Auto) 9200 H (2807-3238) /uL Lymph # (Auto) 2100 (6830-0932) /uL [place] # (Auto) 800 (0-900) /uL Eos # (Auto) 300 (0-450) /uL Baso # (Auto) 100 (0-100) /uL ESR 6 (0-15) MM/HR D-Dimer 1296 H (<500) ng/ml Sodium 135 L (137-145) mmol/L Potassium 4.6 (3.4-5.1) mmol/L Chloride 102 (98-107) mmol/L Carbon Dioxide 28 (22-32) mmol/L BUN 14 (9-20) mg/dL Creatinine 0.93 (0.66-1.25) mg/dL Estimated GFR > 60 (>60) mL/min BUN/Creatinine Ratio 15.1 (6-22) Glucose 123 H (70-100) mg/dL Lactate 1.2 (0.7-2.1) mmol/L Uric Acid 6.1 (3.5-8.5) mg/dL Calcium 9.3 (8.4-10.2) mg/dL Total Bilirubin 0.7 (0.2-1.3) mg/dL AST 23 (17-59) IU/L ALT 24 (<50) IU/L Alkaline Phosphatase 120 (38-126) U/L C-Reactive Protein 18.6 H (<1.0) mg/dL Total Protein 8.3 H (6.3-8.2) g/dL Albumin 4.3 (3.5-5.0) g/dL Globulin 4.0 (1.7-4.1) g/dL Albumin/Globulin Ratio 1.1 (1.0-2.8) Lipase 48 (23-300) U/L Procalcitonin 0.10 (<0.5) ng/mL Imaging Data Extremity x-ray #1: Radiologist's Impression: PROCEDURE: XR ANKLE LT MIN 3V INDICATIONS: swelling and pain TECHNIQUE: 3 views of the ankle were acquired. COMPARISON: None. FINDINGS: Bones: No fractures or dislocations. Ankle mortise is normally aligned. No suspicious bony lesions. Soft tissues: Prominent soft tissue edema is seen surrounding the ankle. IMPRESSION: Nonspecific soft tissue edema. No acute osseous abnormality. If there is continued clinical concern or persistent symptoms, repeat radiographs or cross-sectional imaging (e.g. CT, MRI) may be helpful for further evaluation. Extremity x-ray #2: Radiologist's Impression: PROCEDURE: XR FOOT LT MIN 3V INDICATIONS: pain and swelling TECHNIQUE: 3 views of the foot were acquired. COMPARISON: None. FINDINGS: Bones: No acute fractures or dislocations. No suspicious bony lesions. Tiny plantar calcaneal enthesophyte. Soft tissues: No suspicious soft tissue calcifications. Nonspecific edema is seen throughout the ankle and foot. IMPRESSION: Nonspecific soft tissue edema. No acute osseous abnormality. If there is continued clinical concern or persistent symptoms, repeat radiographs or cross-sectional imaging (e.g. CT, MRI) may be helpful for further evaluation. US - DVT: Radiologist's Impression: PROCEDURE: US PERIPH VENOUS LOW EXTREM LT INDICATIONS: eval for DVT TECHNIQUE: Real-time imaging, as well as color and pulse Doppler interrogation, were performed of the lower extremity deep veins from the inguinal ligament to the popliteal fossa, with documentation of the visualized calf veins. COMPARISON: None. FINDINGS: The common femoral, femoral, popliteal, and the visualized calf veins are normally compressible, and free of intraluminal thrombus. Color and pulse Doppler demonstrate normal phasic intraluminal flow. There is normal augmentation response to distal compression maneuver. Peroneal vein not well seen due to calf edema. IMPRESSION: No findings of lower extremity deep venous thrombosis. [facility] Narrative Medical decision making narrative: No fractures or dislocations on the x-ray. Negative for DVT. Does have a leukocytosis. He does warm swollen left foot and ankle with some erythema consistent with cellulitis. I have low suspicion for septic joint based on his exam. Patient is tolerating oral intake. There was no indication of a deep abscess. Patient was given 1st dose of antibiotics here in the ER and discharged home with a printed prescription per his request. He was given return precautions and follow-up instructions. He expressed understanding and agreement. Discharge Plan Departure Patient Disposition: Home Clinical Impression: Cellulitis Instructions: DI for Cellulitis -- Adult Activity Restrictions/Additional Instructions: I do recommend that you take the antibiotics as directed. You can take Tylenol or ibuprofen for any discomfort. You can walk on your foot as tolerated but use the crutches as needed. Return to the emergency department for new symptoms. Prescriptions: New doxycycline hyclate 100 mg tablet 100 mg PO BID 10 Days Qty: 20 0RF Referrals: Miscellaneous,DoctorMD [Primary Care Provider] - Stand Alone Forms: Patient Portal/API
--- NOTE | 2023-06-22 19:34 | DI.US.S_ITS ---
PROCEDURE: US PERIPH VENOUS LOW EXTREM LT INDICATIONS: eval for DVT TECHNIQUE: Real-time imaging, as well as color and pulse Doppler interrogation, were performed of the lower extremity deep veins from the inguinal ligament to the popliteal fossa, with documentation of the visualized calf veins. COMPARISON: None. FINDINGS: The common femoral, femoral, popliteal, and the visualized calf veins are normally compressible, and free of intraluminal thrombus. Color and pulse Doppler demonstrate normal phasic intraluminal flow. There is normal augmentation response to distal compression maneuver. Peroneal vein not well seen due to calf edema. IMPRESSION: No findings of lower extremity deep venous thrombosis. Dictated by: Iain Valles M.D. on 06/22/2023 at 20:13 Approved by: Iain Valles M.D. on 06/22/2023 at 20:14
[2023-06-22 19:51] LABS: Add Manual Diff / Slide Review NO; Basophils Absolute Auto 100 /uL (0-100); Basophils Percent Auto 0.7 % (0-2); Eosinophils Absolute Auto 300 /uL (0-450); Eosinophils Percent Auto 2.6 % (2-4); Hematocrit 41.2 % (41-53); Lymphocytes Absolute Auto 2100 /uL (1100-4500); Lymphocytes Percent Auto 16.9 % (25-40); Mean Corpuscular HGB Conc 33.9 % (30-36); Mean Corpuscular Hemoglobin 28.2 PG (26-34); Mean Corpuscular Volume 83.4 fL (80-100); Monocytes Absolute Auto 800 /uL (0-900); Monocytes Percent Auto 6.5 % (3-14); Neutrophils Absolute Auto 9200 /uL (1500-7000); Neutrophils Percent Auto 73.3 % (50-75); Platelet Count 532 X10^3/uL (150-400); Red Blood Cell Count 4.94 X10^6/uL (4.5-5.9); Red Cell Distribution Width 13.9 % (11.6-14.8); White Blood Cell Count 12.6 X10^3/uL (4.5-11.0)
[2023-06-22 20:08] LABS: Lactate (Lactic Acid) 1.2 mmol/L (0.7-2.1)
[2023-06-22 20:11] LABS: Alanine Aminotransferase 24 IU/L (<50); Albumin 4.3 g/dL (3.5-5.0); Albumin Globulin Ratio 1.1 (1.0-2.8); Alkaline Phosphatase 120 U/L (38-126); Aspartate Aminotransferase 23 IU/L (17-59); BUN Creatinine Ratio 15.1 (6-22); Bilirubin Total 0.7 mg/dL (0.2-1.3); Blood Urea Nitrogen 14 mg/dL (9-20); Calcium 9.3 mg/dL (8.4-10.2); Carbon Dioxide 28 mmol/L (22-32); Chloride 102 mmol/L (98-107); Estimated Glomerular Filt Rate > 60 mL/min (>60); Glucose 123 mg/dL (70-100); HEMOLYSIS < 15 (0-50); Lipase 48 U/L (23-300); Potassium 4.6 mmol/L (3.4-5.1); Sodium 135 mmol/L (137-145); Total Protein 8.3 g/dL (6.3-8.2); Uric Acid 6.1 mg/dL (3.5-8.5)
[2023-06-22 20:30] LABS: C-Reactive Protein Quant 18.6 mg/dL (<1.0)
[2023-06-22 20:32] LABS: D Dimer 1296 ng/ml (<500)
[2023-06-22 20:47] LABS: Erythrocyte Sedimentation Rate 6 MM/HR (0-15)
[2023-06-22 21:44] VITALS: BP 126/85; PULSE 82; RESP 20; TEMP 37.2; O2SAT 96
[2023-06-22] MEDS: DOXYCYCLINE HYCLATE 100 MG TABLET PO (21:45)
== END 2023-06-22 21:55 | disposition home or self-care (01) ==
PROVIDERS: Emergency Provider Emergency Medicine
DX: L03.116 Cellulitis of left lower limb (principal)
CPT/HCPCS: 73610; 73630; 80053; 83605; 83690; 84145; 84550; 85025; 85379; 85651; 86140; 93971; 99283; 99284

== ENCOUNTER 2023-06-28 10:42 | Observation (INO) | payer OTHER, MEDICAID, SELFPAY ==
[2022-02-01 15:38] VITALS: BMI 27.3
[2023-06-28] VITALS (18 sets, daily range): BP systolic 110–160; BP diastolic 64–86; PULSE 87–112; RESP 16–29; TEMP 36.4–37.2; O2SAT 94–99; BMI 25.8
--- NOTE | 2023-06-28 10:51 | ED.GENADULT ---
HPI - General Adult General Chief complaint: Skin/Abscess/Foreign Body Stated complaint: Cellulitis on legs,here 4 days ago,constipation Time Seen by Provider: 06/28/23 10:47 Source: patient, EMS, RN notes reviewed and old records reviewed Mode of arrival: EMS Limitations: no limitations History of Present Illness HPI narrative: 48-year-old male history of fentanyl and meth use most recent use was an hour ago, patient presents with complaint of fall over body and joint pain states it is difficult for him to walk secondary pain he states he is also weak particularly legs. He thinks he has had fevers. He denies chest pain or shortness of breath he denies nausea or vomiting, he denies any diarrhea he has had some constipation but has been passing gas. He states he has had some dysuria and feels like he has not completely emptying his bladder. Patient states he was given a prescription for penicillin when he was here last week, EMR shows that he has had doxycycline. He states he has been taking it and has not been improving. Patient states no prescription medications normally. Denies any recent surgeries has had surgery on his right hand. No known drug allergies. Smokes pack per day of tobacco, denies regular alcohol use, uses marijuana does use fentanyl and methamphetamine states he does not inject. Related Data Home Medications Medication Instructions Recorded Confirmed No Known Home Medications 06/28/23 06/28/23 Allergies Allergy/AdvReac Type Severity Reaction Status Date / Time No Known Drug Allergies Allergy Verified 06/22/23 17:18 Review of Systems Review of Systems ROS Unobtainable: All systems reviewed & are unremarkable except as noted in HPI and below Patient History Social History household members: friend(s) Smoking Status: Current every day smoker alcohol intake: current Smoking Status: Current every day smoker alcohol intake frequency: 0-2 drinks per day Substance Use Type: opiates, methamphetamine and prescription drug Exam Narrative Exam Narrative: GEN: Male, alert and oriented x 3, patient appears to be in mild distress. HEENT: Atraumatic, pupils are equal round reactive to light, extraocular movements are intact, nares are clear, there is no conjunctival pallor. Throat is clear without any exudates, erythema, tonsillar enlargement or uvular deviation HEART: Regular rate and rhythm without murmur, clicks, rubs. Pulses are equal in upper and lower extremities LUNGS:Lungs clear to auscultation, no wheezes, rales, crackles, chest moves symmetrically, tachypnea accessory muscle use ABD:bowel sounds normal, soft, non-tender, no guarding, rebound, rigidity, no masses noted, no hepatosplenomegaly :No CVA tenderness BACK: No cervical, thoracic vertebral tenderness, patient has some mild L4-L5 tenderness. Patient has decreased range of motion. Muscle strength is 5/5 in upper extremities, patient does not lift left or right leg well but opposite leg does not pushed down into the bed when attempting to lift. 2+ radial pulses bilaterally as well as dorsalis pedis bilaterally. Cap refill less than 2 seconds. Sensation intact upper and lower extremities. No clonus, DTRs 2/4 upper and lower extremities. MSCL: Patient has some mild tenderness bilateral lower extremities. He has some small abrasions and cuts hands and feet, patient does have erythema tracking over the dorsum of the right foot patchy over the right calf up to the knee. NEURO:CN 2-12 intact, sensation normal. Initial Vital Signs Initial Vital Signs: Vital Signs Pulse Rate 112 H 06/28/23 10:48 Pulse Oximetry 94 06/28/23 10:48 Course Orders Ordered: ED Orders 06/28/23 10:59 MR lumbar spine wo/w con Stat 06/28/23 11:20 CBC Auto Diff [Complete Blood Count AUTO DIFF] Stat CMP [Comprehensive Metabolic Panel] Stat CRP [C-Reactive Protein Quant] Stat ESR [Erythrocyte Sedimentation Rate] Stat Lactate (Lactic Acid) Stat Procalcitonin Stat 06/28/23 11:42 Blood Culture Stat 06/28/23 13:21 UA Complete [Urinalysis and Microscopic] Stat Acetaminophen (Acetaminophen 325 Mg Tablet) 975 mg PO Q6HR PRN PRN Reason: Fever/Mild Pain (1-3) Clonidine HCl (Clonidine 0.1 Mg Tablet) 0.1 mg PO BID [facility] Last Admin: 06/28/23 18:17 Dose: 0.1 mg Documented By: TEP Enoxaparin Sodium (Enoxaparin 40 Mg/0.4 Ml Syringe) 40 mg SUBCUT DAILY [facility] Last Admin: 06/28/23 16:50 Dose: 40 mg Documented By: TEP Ceftriaxone Sodium 2,000 mg/ (Sodium Chloride) 100 mls @ 200 mls/hr IV Q24H [facility] Stop: 07/03/23 09:29 Vancomycin HCl/Dextrose (Vancomycin) 1,500 mg in 300 mls @ 200 mls/hr IV Q12H [facility] Sodium Chloride (Normal Saline 0.9%) 1,000 mls @ 100 mls/hr IV CONT [facility] Stop: 06/29/23 06:44 Last Admin: 06/28/23 18:47 Dose: 100 mls/hr Documented By: TEP Melatonin (Melatonin 3 Mg Tablet) 6 mg PO BEDTIME PRN PRN Reason: Insomnia Methadone HCl (Methadone 10 Mg Tablet) 40 mg PO DAILY [facility] Last Admin: 06/28/23 18:17 Dose: 40 mg Documented By: TEP Naloxone HCl (Naloxone 0.4 Mg/Ml Vial) 0.2 mg IV Q2MIN PRN PRN Reason: Opiate Reversal Ondansetron HCl (Ondansetron 4 Mg/2 Ml Inj) 4 mg IV Q4HR PRN PRN Reason: Nausea And Vomiting Oxycodone HCl (Oxycodone Ir 5 Mg Tablet) 10 mg PO Q4HRWA [facility] Last Admin: 06/28/23 18:32 Dose: 10 mg Documented By: TEP Polyethylene Glycol (Polyethylene Glycol 3350 17 Gm Powd.Pack) 17 gm PO DAILY [facility] Sennosides (Sennosides 8.6 Mg Tablet) 8.6 mg PO BID [facility] Vancomycin HCl (Vancomycin Per Pharmacy) 1 request [facility] [place] NOW PRN PRN Reason: PROTOCOL Vancomycin HCl (Vancomycin Trough) 1 request [facility] [place] 0130 [facility] Stop: 06/30/23 01:31 Vancomycin HCl (Vancomycin Peak) 1 request [facility] [place] 0430 [facility] Stop: 06/30/23 04:31 Discontinued Medications Ceftriaxone Sodium 1,000 mg/ (Sodium Chloride) 100 mls @ 200 mls/hr IV NOW ONE Stop: 06/28/23 11:00 Last Infusion: 06/28/23 12:19 Dose: Infused Documented By: Admin: 06/28/23 11:49 Dose: 200 mls/hr Documented By: BRIANA Vancomycin HCl/Dextrose (Vancomycin) 1,500 mg in 300 mls @ 200 mls/hr IV NOW ONE Stop: 06/28/23 12:28 Last Infusion: 06/28/23 15:22 Dose: Infused Documented By: Admin: 06/28/23 13:53 Dose: 200 mls/hr Documented By: BRIANA Sodium Chloride (Normal Saline 0.9%) 1,000 mls @ 1,000 mls/hr IV [facility] ONE Stop: 06/28/23 12:14 Last Infusion: 06/28/23 12:19 Dose: Infused Documented By: Admin: 06/28/23 11:31 Dose: 1,000 mls/hr Documented By: BRIANA Ceftriaxone Sodium 2,000 mg/ (Sodium Chloride) 100 mls @ 200 mls/hr IV Q24H [facility] Stop: 07/02/23 14:46 Last Admin: 06/28/23 15:23 Dose: Not Given Documented By: CHUY Ketorolac Tromethamine (Ketorolac 30 Mg/Ml Vial) 15 mg IV NOW ONE Stop: 06/28/23 11:00 Last Admin: 06/28/23 11:32 Dose: 15 mg Documented By: BRIANA Methadone HCl (Methadone 10 Mg Tablet) 150 mg PO DAILY [facility] Morphine Sulfate (Morphine 4 Mg/Ml Inj) 4 mg IV Q4HR PRN PRN Reason: Pain, Severe (7-10) Oxycodone HCl (Oxycodone Ir 5 Mg Tablet) 5 mg PO Q4HR PRN PRN Reason: Pain, Moderate (4-6) Oxycodone HCl (Oxycodone Ir 5 Mg Tablet) 10 mg PO Q4HR PRN PRN Reason: Pain, Moderate (4-6) Polyethylene Glycol (Polyethylene Glycol 3350 17 Gm Powd.Pack) 17 gm PO DAILY PRN PRN Reason: Constipation Sennosides (Sennosides 8.6 Mg Tablet) 8.6 mg PO BID PRN PRN Reason: Constipation Vital Signs Vital signs: Vital Signs - 8 hr 06/28/23 11:30 06/28/23 11:30 06/28/23 12:00 Temperature Pulse Rate 98 H 92 H Respiratory Rate 24 Blood Pressure 137/77 Pulse Oximetry 98 97 06/28/23 12:00 06/28/23 12:30 06/28/23 12:30 Temperature Pulse Rate 96 H Respiratory Rate 27 H Blood Pressure 130/85 160/85 H Pulse Oximetry 96 06/28/23 13:17 06/28/23 13:30 06/28/23 13:54 Temperature 98.9 F Pulse Rate 96 H 91 H Respiratory Rate 21 Blood Pressure 121/69 Pulse Oximetry 95 96 06/28/23 13:54 06/28/23 14:00 06/28/23 14:00 Temperature Pulse Rate 95 H 87 Respiratory Rate 23 26 H Blood Pressure 126/70 Pulse Oximetry 96 95 06/28/23 14:30 06/28/23 14:30 Temperature Pulse Rate 88 Respiratory Rate 27 H Blood Pressure 156/86 H Pulse Oximetry 97 Medical Decision Making Lab Data 06/28/23 11:20 06/28/23 11:20 Labs: Lab Results 06/28/23 06/28/23 Range/Units 11:20 13:21 WBC 17.1 H (4.5-11.0) X10^3/uL RBC 4.36 L (4.5-5.9) X10^6/uL Hgb 12.3 L (13.5-17.5) g/dL Hct 36.5 L (41-53) % MCV 83.7 (80-100) fL MCH 28.1 (26-34) PG MCHC 33.6 (30-36) % RDW 14.0 (11.6-14.8) % Plt Count 674 H (150-400) X10^3/uL Neut % (Auto) 86.5 H (50-75) % Lymph % (Auto) 6.2 L (25-40) % [place] % (Auto) 6.9 (3-14) % Eos % (Auto) 0.0 L (2-4) % Baso % (Auto) 0.4 (0-2) % Neut # (Auto) 62561 H (0612-7797) /uL Lymph # (Auto) 1100 (1586-8061) /uL [place] # (Auto) 1200 H (0-900) /uL Eos # (Auto) 0 (0-450) /uL Baso # (Auto) 100 (0-100) /uL ESR 79 H (0-15) MM/HR Sodium 134 L (137-145) mmol/L Potassium 4.1 (3.4-5.1) mmol/L Chloride 100 (98-107) mmol/L Carbon Dioxide 21 L (22-32) mmol/L BUN 29 H (9-20) mg/dL Creatinine 0.95 (0.66-1.25) mg/dL Estimated GFR > 60 (>60) mL/min BUN/Creatinine Ratio 30.5 H (6-22) Glucose 119 H (70-100) mg/dL Lactate 1.1 (0.7-2.1) mmol/L Calcium 9.5 (8.4-10.2) mg/dL Total Bilirubin 1.0 (0.2-1.3) mg/dL AST 44 (17-59) IU/L ALT 29 (<50) IU/L Alkaline Phosphatase 198 H D (38-126) U/L C-Reactive Protein 37.4 H (<1.0) mg/dL Total Protein 8.0 (6.3-8.2) g/dL Albumin 3.9 (3.5-5.0) g/dL Globulin 4.1 (1.7-4.1) g/dL Albumin/Globulin Ratio 1.0 (1.0-2.8) Procalcitonin 1.06 H (<0.5) ng/mL Urine Color Yellow Urine Appearance Clear Urine pH 5.5 (4.5-8.0) Ur Specific [place] 1.015 (1.000-1.035) Urine Protein Negative (Negative) Urine Glucose (UA) Negative (Negative) g/dL Urine Ketones 2+ H (NEGATIVE) Urine Occult Blood Trace-intact (Negative) Urine Nitrate Negative (Negative) Urine Bilirubin Negative (NEGATIVE) Urine Urobilinogen 1.0 (0.2) E.U./dL Ur Leukocyte Esterase Negative (NEGATIVE) Urine RBC 0-1/hpf (0-5/HPF) Urine WBC 0-1/hpf (0-5/HPF) Ur Squamous Epith Cells 0-1 /hpf (0-5/HPF) Urine Bacteria None seen (None) Ur Culture Indicated? Cult not indicated Vol Urine Centrifuged 10ml (spun) MDM Narrative Medical decision making narrative: 48-year-old male appears to have cellulitis, appears to be worsening possibly failed outpatient medications but patient also describes having increased weakness as extremities and inability to walk or lift them. DTRs are appropriate but patient needs MR L-spine to rule out epidural abscess. Patient has white count of, hemoglobin of 12, platelets are 674. This is trended upward from June 21. Patient did have a positive D-dimer on June 21 had DVT ultrasound which was negative. This was not repeated again today patient has patchy erythema that seems cellulitic edema with some scaling around the edges. Sodium today is 134, potassium 4.1 chloride 100, CO2 is 21 BUN 29, glucose is 119, lactate 1.1 LFTs are negative except for an alk-phos of 198 see refractive protein is 37 has been trending upwards from 18 in June of 2023 and has a positive procalcitonin of 1.06. MR L-spine was obtained this shows no evidence of infection no abscess diskitis or osteomyelitis degenerative disease and arthropathy lower cervical spine. Spoke with patient he is willing to be admitted. Patient received fluids but not 30 cc/kilos bolus as any hypotension in his otherwise well-appearing patient was given Rocephin and vancomycin for broad-spectrum coverage. Discussed with Dr. Artis, patient accepted for inpatient with IV antibiotics. Discharge Plan Departure Patient Disposition: Admitted As Inpatient Clinical Impression: Cellulitis of leg, right, Sepsis Admit Date/Time: 06/28/23 14:30 Admit Provider: Laurent Artis
--- NOTE | 2023-06-28 10:59 | DI.MRI.S_ITS ---
PROCEDURE: MR LUMBAR SPINE WO/W CON INDICATIONS: infxn leg r, weak both, pain, hx substance abuse TECHNIQUE: Noncontrast sagittal T1 spin echo and T2 fast spin echo, sagittal STIR, axial T1 and T2 fast spin echo through the lumbar spine. In cases with scoliosis, additional coronal T2 fast spin echo may be performed. After the administration of contrast, sagittal and axial T1 spin echo with fat saturation through the lumbar spine. COMPARISON: None. FINDINGS: Image quality: Excellent. Alignment and curvature: There is normal bony alignment. Marrow: Marrow is of normal overall signal. No acute vertebral body compression fractures. No suspicious marrow enhancement. Spinal cord: Conus medullaris terminates at the L1 level. Visualized spinal cord demonstrates normal signal, without suspicious enhancement. Paraspinous soft tissues: No paravertebral masses or abnormal enhancement. T12-L1: Normal appearance. L1-L2: Normal appearance. L2-L3: Normal appearance. L3-L4: Normal appearance. L4-L5: Disc height is maintained. Disc bulge and hypertrophic facet joints results in mild central stenosis. Moderate left and no right foraminal stenosis L5-S1: Disc height loss and asymmetric right disc bulge. There is effacement the right lateral recess. Mild central stenosis. No foraminal stenosis. IMPRESSION: No evidence of infection. No epidural abscess or discitis/osteomyelitis. Mild degenerative disc disease and arthropathy in the lower cervical spine Approved by: Georgi Chu M.D. on 06/28/2023 at 12:32
[2023-06-28] MEDS: SODIUM CHLORIDE 0.9% 1,000 ML 1000 ML IV (11:31)
[2023-06-28] MEDS: KETOROLAC 30 MG/ML VIAL 15 MG IV (11:32)
[2023-06-28 11:41] LABS: Add Manual Diff / Slide Review NO; Basophils Absolute Auto 100 /uL (0-100); Basophils Percent Auto 0.4 % (0-2); Eosinophils Absolute Auto 0 /uL (0-450); Hematocrit 36.5 % (41-53); Hemoglobin 12.3 g/dL (13.5-17.5); Lymphocytes Absolute Auto 1100 /uL (1100-4500); Lymphocytes Percent Auto 6.2 % (25-40); Mean Corpuscular HGB Conc 33.6 % (30-36); Mean Corpuscular Hemoglobin 28.1 PG (26-34); Mean Corpuscular Volume 83.7 fL (80-100); Monocytes Absolute Auto 1200 /uL (0-900); Monocytes Percent Auto 6.9 % (3-14); Neutrophils Absolute Auto 14800 /uL (1500-7000); Neutrophils Percent Auto 86.5 % (50-75); Platelet Count 674 X10^3/uL (150-400); Red Blood Cell Count 4.36 X10^6/uL (4.5-5.9); White Blood Cell Count 17.1 X10^3/uL (4.5-11.0)
[2023-06-28] MEDS: cefTRIAXone 1,000 MG in SODIUM CHLORIDE 0.9% 100 ML 200 MG IV (11:49)
[2023-06-28 11:56] LABS: Lactate (Lactic Acid) 1.1 mmol/L (0.7-2.1)
--- NOTE | 2023-06-28 11:57 | PC.NURSE ---
Pt came to ED today via ems for worsening cellulitis sx and failed outpatient tx with abx. Pt states that his pain is getting worse he is starting to feel more body aches. Pt had difficulty moving from EMS stretcher to the [facility] due to pain. Pt has hx of IV drug and fentanyl use. Last use of fent was this morning.
[2023-06-28 11:59] LABS: Alanine Aminotransferase 29 IU/L (<50); Albumin 3.9 g/dL (3.5-5.0); Alkaline Phosphatase 198 U/L (38-126); Aspartate Aminotransferase 44 IU/L (17-59); BUN Creatinine Ratio 30.5 (6-22); Blood Urea Nitrogen 29 mg/dL (9-20); Calcium 9.5 mg/dL (8.4-10.2); Carbon Dioxide 21 mmol/L (22-32); Chloride 100 mmol/L (98-107); Estimated Glomerular Filt Rate > 60 mL/min (>60); Globulin 4.1 g/dL (1.7-4.1); Glucose 119 mg/dL (70-100); HEMOLYSIS < 15 (0-50); Potassium 4.1 mmol/L (3.4-5.1); Sodium 134 mmol/L (137-145)
[2023-06-28 12:12] LABS: Procalcitonin 1.06 ng/mL (<0.5)
[2023-06-28 12:29] LABS: C-Reactive Protein Quant 37.4 mg/dL (<1.0)
[2023-06-28 12:54] LABS: Erythrocyte Sedimentation Rate 79 MM/HR (0-15)
[2023-06-28 13:35] LABS: Appearance Urine UA CLEAR; Bilirubin Urine UA NEGATIVE (NEGATIVE); Color Urine UA YELLOW; Glucose Urine UA NEGATIVE (Negative); Ketones Urine UA 2+ (NEGATIVE); Leukocyte Esterase Urine UA NEGATIVE (NEGATIVE); Nitrite Urine UA NEGATIVE (Negative); Occult Blood Urine UA TRACE-INTACT (Negative); Protein Urine UA NEGATIVE (Negative); Specific Gravity Urine UA 1.015 (1.000-1.035); pH Urine UA 5.5 (4.5-8.0)
[2023-06-28 13:47] LABS: Bacteria Urine None Seen; Culture Indicated Urine Cult Not Indicated; RBC Urine 0-1/HPF (0-5/HPF); Squamous Epithelial Cell Urine 0-1 /HPF (0-5/HPF); Urine Volume 10mL (spun); WBC Urine 0-1/HPF (0-5/HPF)
[2023-06-28] MEDS: VANCOMYCIN 1,500 MG/300 ML PIGGYBACK 200 MG IV (13:53)
--- NOTE | 2023-06-28 13:55 | PC.NURSE ---
pt states that he feels the same as he did when he came in. Pt reports that he still has pain in his legs and hips. A&Ox4.
--- NOTE | 2023-06-28 14:59 | CM.DANOTE ---
Addendum entered by NICOLE Odell 06/28/23 15:18: Per [facility] report, pt's Primary Care Provider is Sydnie Melendez PA-C at [facility] ([facility] [address]). Original Note: DCP Assessment Note Pt is a 48yo male, resident of [place], presented to the ED due to failed outpatient antibiotic treatment and being admitted for cellulitus on legs. Pt also presented to the ED on 06/22/2023, per triage, pt's symptoms were not subsiding with prescribed antibiotics. PCP: None identified in EMR, none reported Payor: Medicaid Per chart review, pt has obtained services at [facility] in 2021. ED GEOPHYSICAL LABORATORY DIRECTOR called [facility] and left a message for a requesting a returned call to DCP team. Per ED RN, pt uses marijuana, fentanyl and methamphetamines; last use of fentanyl was this morning, 06/28/23. Reviewed chart for pt's medical status and initial discharge needs. ED GEOPHYSICAL LABORATORY DIRECTOR met with pt at bedside, introduced self and role. Pt was found lying in bed, kept eyes closed during assessment but was calm and cooperative. Pt confirmed living arrangement at friend's house in [place]; address updated ([address] [place] [address]). Pt does not identify any other community needs at this time. Plan: Pt to be admitted for IV antibiotics and further evaluation in acute care. CM team will plan to follow clinical course closely for assessment of need and coordination of discharge plan. LEONOR Loera Discharge Planning/Care Management CM Discharge Assessment Start: 06/28/23 14:56 Freq: Status: Active Protocol: Document 06/28/23 14:56 MW (Rec: 06/28/23 14:58 MW [id number]) Discharge Planning Assessment Assigned Element Burner NICOLE Koehler DPOA/Assigned Designee Name Sister Garnica Contact Information [phone] Advance Directives? No Advance Directives on File No History Provided By Patient,Medical Record Has Patient been admitted in last 30 No days? Prior Living Arrangements House Household Members friend(s) Comment Pt is residing with a friend in [place], [place]. Type of transporation used prior to Relies on Others admit Independent with ADL's Yes Is patient alert and oriented? Yes Caregiver for Another No Barriers to Discharge No Discharge Plan Home Transportation Arrangement Requests transport with friends or family. Referrals Initiated None needed Whiteboard Updated in Patient Room with No name and ext. # of Element Burner Review Status In Process Please Provide Date Initial DC 06/28/23 Assessment Was Performed Next Review Type Continued Stay Review
[2023-06-28] MEDS: ENOXAPARIN 40 MG/0.4 ML SYRINGE SUBCUT (16:50)
[2023-06-28] MEDS: METHADONE 10 MG TABLET 40 MG PO (18:17)
[2023-06-28] MEDS: cloNIDine 0.1 MG TABLET PO ×2 (18:17→21:14)
[2023-06-28] MEDS: OXYCODONE IR 5 MG TABLET 10 MG PO ×2 (18:32→21:14)
--- NOTE | 2023-06-28 18:34 | PM.HP.1 ---
History of Present Illness History of Present Illness Date Patient Seen: 06/28/23 Chief complaint: Cellulitis on legs,here 4 days ago,constipation Narrative: Cody Bill is a 48yo M with PMH of active fentanyl and meth use who presents with RLE pain and redness. Patient notes last using fentanyl powder this morning at 11am. He was given oral antibiotics on 06/21 for RLE cellulitis and has been taking them but not improving. He currently thinks he is withdrawing from opiates and would like to have treatment with methadone. Says he has been on methadone in the past and taken 165mg daily. He denies CP, SOB, [place], abd pain or diarrhea. [facility] Social History household members: friend(s) Smoking Status: Current every day smoker alcohol intake: current Meds Home Medications and Allergies Home Medications Medication Instructions Recorded Confirmed Type cefuroxime axetil 500 mg tablet 500 mg PO BID #14 tabs 06/29/23 Rx clonidine HCl 0.1 mg tablet 0.1 mg PO BID #4 tabs 06/29/23 Rx methadone 10 mg tablet 40 mg (4 x 10 mg) PO DAILY #1 tab 06/29/23 Rx oxycodone 5 mg tablet 10 mg (2 x 5 mg) PO Q12HR PRN 06/29/23 Rx Pain, Severe (7-10) #4 tabs Allergies Allergy/AdvReac Type Severity Reaction Status Date / Time No Known Drug Allergies Allergy Verified 06/22/23 17:18 Review of Systems Review of Systems Narrative: All other systems reviewed with the patient and are negative unless otherwise stated. Exam Vital Signs (past 8 hours): - 06/28/23 10:48 06/28/23 10:56 06/28/23 10:56 Temperature Pulse Rate 112 H 104 H Respiratory Rate 17 Blood Pressure 135/76 Pulse Oximetry 94 98 Oxygen Delivery Method Oxygen Flow Rate 06/28/23 10:59 06/28/23 11:00 06/28/23 11:00 Temperature 98.6 F Pulse Rate 110 H 107 H Respiratory Rate 20 29 H Blood Pressure 135/76 129/72 Pulse Oximetry 99 Oxygen Delivery Method Room Air Oxygen Flow Rate 06/28/23 11:30 06/28/23 11:30 06/28/23 12:00 Temperature Pulse Rate 98 H 92 H Respiratory Rate 24 Blood Pressure 137/77 Pulse Oximetry 98 97 Oxygen Delivery Method Oxygen Flow Rate 06/28/23 12:00 06/28/23 12:30 06/28/23 12:30 Temperature Pulse Rate 96 H Respiratory Rate 27 H Blood Pressure 130/85 160/85 H Pulse Oximetry 96 Oxygen Delivery Method Oxygen Flow Rate 06/28/23 13:17 06/28/23 13:30 06/28/23 13:54 Temperature 98.9 F Pulse Rate 96 H 91 H Respiratory Rate 21 Blood Pressure 121/69 Pulse Oximetry 95 96 Oxygen Delivery Method Oxygen Flow Rate 06/28/23 13:54 06/28/23 14:00 06/28/23 14:00 Temperature Pulse Rate 95 H 87 Respiratory Rate 23 26 H Blood Pressure 126/70 Pulse Oximetry 96 95 Oxygen Delivery Method Oxygen Flow Rate 06/28/23 14:30 06/28/23 14:30 06/28/23 14:38 Temperature Pulse Rate 88 Respiratory Rate 27 H Blood Pressure 156/86 H Pulse Oximetry 97 Oxygen Delivery Method Room Air Oxygen Flow Rate 06/28/23 15:00 06/28/23 15:00 06/28/23 15:30 Temperature Pulse Rate 92 H 100 H Respiratory Rate 24 22 Blood Pressure 122/75 Pulse Oximetry 97 98 Oxygen Delivery Method Oxygen Flow Rate 06/28/23 15:30 06/28/23 16:00 06/28/23 18:17 Temperature 97.6 F Pulse Rate 93 H Respiratory Rate 16 Blood Pressure 124/72 126/80 126/80 Pulse Oximetry 98 Oxygen Delivery Method Oxygen Flow Rate 0 Oxygen Delivery Method Room Air Oxygen Flow Rate 0 Narrative Exam Narrative: GEN: no acute distress, disheveled HEENT: moist mucous membranes, PERRL NECK: trachea midline, no JVD CV: regular rate and rhythm, no murmurs PULM: clear bilaterally ABD: soft, nontender, nondistended, no organomegaly EXT: warm and well perfused with no edema, RLE erythema of calf and [place], pain to palpation NEURO: awake, alert, oriented, no focal deficits Objective Labs 06/29/23 05:13 06/29/23 05:13 Labs: Laboratory Results - last 24 hr 06/28/23 06/28/23 11:20 13:21 WBC 17.1 H RBC 4.36 L Hgb 12.3 L Hct 36.5 L MCV 83.7 MCH 28.1 MCHC 33.6 RDW 14.0 Plt Count 674 H Neut % (Auto) 86.5 H Lymph % (Auto) 6.2 L [place] % (Auto) 6.9 Eos % (Auto) 0.0 L Baso % (Auto) 0.4 Neut # (Auto) 20606 H Lymph # (Auto) 1100 [place] # (Auto) 1200 H Eos # (Auto) 0 Baso # (Auto) 100 ESR 79 H Sodium 134 L Potassium 4.1 Chloride 100 Carbon Dioxide 21 L BUN 29 H Creatinine 0.95 Estimated GFR > 60 BUN/Creatinine Ratio 30.5 H Glucose 119 H Lactate 1.1 Calcium 9.5 Total Bilirubin 1.0 AST 44 ALT 29 Alkaline Phosphatase 198 H D C-Reactive Protein 37.4 H Total Protein 8.0 Albumin 3.9 Globulin 4.1 Albumin/Globulin Ratio 1.0 Procalcitonin 1.06 H Urine Color Yellow Urine Appearance Clear Urine pH 5.5 Ur Specific [place] 1.015 Urine Protein Negative Urine Glucose (UA) Negative Urine Ketones 2+ H Urine Occult Blood Trace-intact Urine Nitrate Negative Urine Bilirubin Negative Urine Urobilinogen 1.0 Ur Leukocyte Esterase Negative Urine RBC 0-1/hpf Urine WBC 0-1/hpf Ur Squamous Epith Cells 0-1 /hpf Urine Bacteria None seen Ur Culture Indicated? Cult not indicated Vol Urine Centrifuged 10ml (spun) Assessment & Plan Assessment & Plan narrative: # RLE cellulitis, failed outpatient po abx # h/o MRSA # active fentanyl use, with opioid withdrawals # constipation -rocephin and vanco -start scheduled oxy 10mg q4h, clonidine 0.1mg BID for opioid withdrawal -start methadone 40mg daily, patient previously on 165mg daily in the past -start scheduled laxatives -f/up blood cultures -tele Code status is full code. DVT prophylaxis with Lovenox. Proxy is sister Teresita. I have reviewed home meds and used all available resources to reconcile the home meds. Case discussed with ED physician/APC and patient will be admitted to the hospitalist service for further workup and management. This patient will be admitted as obs and will require less than 2 midnights of hospital time to treat cellulitis.
[2023-06-28] MEDS: SODIUM CHLORIDE 0.9% 1,000 ML 100 ML IV (18:47)
[2023-06-29] VITALS: BP 136/82; PULSE 66; RESP 18; TEMP 37; O2SAT 96
[2023-06-29] MEDS: VANCOMYCIN 1,500 MG/300 ML PIGGYBACK 200 MG IV (02:45)
[2023-06-29] MEDS: OXYCODONE IR 5 MG TABLET 10 MG PO (03:45)
[2023-06-29 04:17] LABS: MRSA (Nasal) PCR NOT DETECTED (Not Detect)
[2023-06-29] MEDS: SODIUM CHLORIDE 0.9% 1,000 ML 100 ML IV (05:18)
[2023-06-29 05:32] VITALS: BP 124/85; PULSE 90; RESP 16; TEMP 36; O2SAT 97
[2023-06-29 05:53] LABS: Add Manual Diff / Slide Review NO; Basophils Absolute Auto 100 /uL (0-100); Basophils Percent Auto 0.4 % (0-2); Eosinophils Absolute Auto 100 /uL (0-450); Eosinophils Percent Auto 0.4 % (2-4); Hematocrit 35.1 % (41-53); Hemoglobin 11.5 g/dL (13.5-17.5); Lymphocytes Absolute Auto 1900 /uL (1100-4500); Lymphocytes Percent Auto 12.9 % (25-40); Mean Corpuscular HGB Conc 32.8 % (30-36); Mean Corpuscular Hemoglobin 27.4 PG (26-34); Mean Corpuscular Volume 83.4 fL (80-100); Monocytes Absolute Auto 900 /uL (0-900); Monocytes Percent Auto 6.3 % (3-14); Neutrophils Absolute Auto 12100 /uL (1500-7000); Platelet Count 603 X10^3/uL (150-400); Red Blood Cell Count 4.21 X10^6/uL (4.5-5.9); Red Cell Distribution Width 14.2 % (11.6-14.8); White Blood Cell Count 15.1 X10^3/uL (4.5-11.0)
[2023-06-29 06:14] LABS: BUN Creatinine Ratio 26.1 (6-22); Blood Urea Nitrogen 23 mg/dL (9-20); Calcium 8.8 mg/dL (8.4-10.2); Carbon Dioxide 22 mmol/L (22-32); Chloride 107 mmol/L (98-107); Estimated Glomerular Filt Rate > 60 mL/min (>60); Glucose 107 mg/dL (70-100); HEMOLYSIS < 15 (0-50); Potassium 4.1 mmol/L (3.4-5.1); Sodium 136 mmol/L (137-145)
[2023-06-29 06:46] LABS: C-Reactive Protein Quant 28.9 mg/dL (<1.0)
[2023-06-29 08:00] VITALS: BP 140/79; PULSE 85; RESP 14; TEMP 36.1; O2SAT 98
[2023-06-29] MEDS: cefTRIAXone 2,000 MG in SODIUM CHLORIDE 0.9% 100 ML 200 MG IV (08:11)
[2023-06-29] MEDS: cloNIDine 0.1 MG TABLET PO (08:11)
[2023-06-29] MEDS: METHADONE 10 MG TABLET 40 MG PO (08:12)
[2023-06-29] MEDS: ENOXAPARIN 40 MG/0.4 ML SYRINGE SUBCUT (08:12)
--- NOTE | 2023-06-29 09:26 | P.DS_ITS ---
History of Present Illness History of Present Illness Date Patient Seen: 06/29/23 Time Patient Seen: 08:00 Chief complaint: Cellulitis on legs,here 4 days ago,constipation Narrative: 48-year-old male history of fentanyl and meth use most recent use was an hour ago, patient presents with complaint of fall over body and joint pain states it is difficult for him to walk secondary pain he states he is also weak particularly legs. He thinks he has had fevers. He denies chest pain or shortness of breath he denies nausea or vomiting, he denies any diarrhea he has had some constipation but has been passing gas. He states he has had some dysuria and feels like he has not completely emptying his bladder. Patient states he was given a prescription for penicillin when he was here last week, EMR shows that he has had doxycycline. He states he has been taking it and has not been improving. Patient states no prescription medications normally. Denies any recent surgeries has had surgery on his right hand. No known drug allergies. Smokes pack per day of tobacco, denies regular alcohol use, uses marijuana does use fentanyl and methamphetamine states he does not inject. Discharge Providers Provider Date of admission: 06/28/23 14:30 Discharge Date: 06/29/23 Primary care physician: Doctor Crystal MD Discharge provider: Mikael Cabrera MD Summary Hospital Course Discharge Diagnosis: 1. Bilateral lower extremity cellulitis, venous stasis, failed outpatient oral antibiotics 2. Sepsis due to 1. 3. History of MRSA 4. Active fentanyl use, with opioid withdrawal 5. Constipation Hospital Course: The patient was hospitalized and started on IV ceftriaxone and vancomycin. He was started on OxyContin 10 mg every 4 hours, clonidine 0.1 mg twice daily for opioid withdrawal, and methadone 40 mg daily. He has outpatient follow-up with [facility] planned the day following discharge. he noted significant and unexpected improvement in pain and swelling in his feet, and was interested in discharge home the following day. He was very inclined to discharge, stating that he would likely discharge even if not formally discharged. It was felt reasonable with close outpatient follow-up on oral antibiotics and with opioid treatment planned to release home. No other issues arose. Status at Discharge Cognitive/behavioral status at discharge: oriented Functional status at discharge: independent ambulation Overall status at discharge: patient is back to baseline Time Spent with Patient Time spent: Less than 30 minutes Exam Vital Signs (past 8 hours): - 06/29/23 05:32 06/29/23 08:00 Temperature 96.8 F L 96.9 F L Pulse Rate 90 85 Respiratory Rate 16 14 Blood Pressure 124/85 140/79 Pulse Oximetry 97 98 Oxygen Flow Rate 0 0 Oxygen Delivery Method Room Air Oxygen Flow Rate 0 Narrative Exam Narrative: GENERAL: This is a well-nourished, well-developed patient, in no apparent distress. HEAD: Atraumatic. Normocephalic. No temporal or scalp tenderness. EYES: Pupils equal round and reactive. Extraocular motions intact. No scleral icterus. No injection or drainage. ENT: Mucous membranes pink and moist. NECK: Trachea midline. No JVD, bruits or lymphadenopathy. Supple, nontender, no meningeal signs. CARDIOVASCULAR: Regular rate and rhythm without murmurs, gallops, or rubs. RESPIRATORY: Clear to auscultation. GASTROINTESTINAL: Abdomen soft, non-tender, nondistended. EXTREMITIES: No clubbing, cyanosis, or edema. BACK: Nontender without deformity or crepitance. No flank tenderness. NEUROLOGIC: Alert, oriented, speech fluent, full upper and lower motor strength, no focal deficits evident. DERMATOLOGIC: Mild skin thickening and crusting between the toes, mildly tender in the right foot, no erythema, no cellulitic changes evident. Objective Labs 06/29/23 05:13 06/29/23 05:13 Labs: Laboratory Results - last 24 hr 06/28/23 06/28/23 06/29/23 11:20 13:21 02:59 WBC 17.1 H RBC 4.36 L Hgb 12.3 L Hct 36.5 L MCV 83.7 MCH 28.1 MCHC 33.6 RDW 14.0 Plt Count 674 H Neut % (Auto) 86.5 H Lymph % (Auto) 6.2 L [place] % (Auto) 6.9 Eos % (Auto) 0.0 L Baso % (Auto) 0.4 Neut # (Auto) 50547 H Lymph # (Auto) 1100 [place] # (Auto) 1200 H Eos # (Auto) 0 Baso # (Auto) 100 ESR 79 H Sodium 134 L Potassium 4.1 Chloride 100 Carbon Dioxide 21 L BUN 29 H Creatinine 0.95 Estimated GFR > 60 BUN/Creatinine Ratio 30.5 H Glucose 119 H Lactate 1.1 Calcium 9.5 Total Bilirubin 1.0 AST 44 ALT 29 Alkaline Phosphatase 198 H D C-Reactive Protein 37.4 H Total Protein 8.0 Albumin 3.9 Globulin 4.1 Albumin/Globulin Ratio 1.0 Procalcitonin 1.06 H Urine Color Yellow Urine Appearance Clear Urine pH 5.5 Ur Specific [place] 1.015 Urine Protein Negative Urine Glucose (UA) Negative Urine Ketones 2+ H Urine Occult Blood Trace-intact Urine Nitrate Negative Urine Bilirubin Negative Urine Urobilinogen 1.0 Ur Leukocyte Esterase Negative Urine RBC 0-1/hpf Urine WBC 0-1/hpf Ur Squamous Epith Cells 0-1 /hpf Urine Bacteria None seen Ur Culture Indicated? Cult not indicated Vol Urine Centrifuged 10ml (spun) Nasal Screen MRSA (PCR) Not detected 06/29/23 05:13 WBC 15.1 H RBC 4.21 L Hgb 11.5 L Hct 35.1 L MCV 83.4 MCH 27.4 MCHC 32.8 RDW 14.2 Plt Count 603 H Neut % (Auto) 80.0 H Lymph % (Auto) 12.9 L [place] % (Auto) 6.3 Eos % (Auto) 0.4 L Baso % (Auto) 0.4 Neut # (Auto) 32248 H Lymph # (Auto) 1900 [place] # (Auto) 900 Eos # (Auto) 100 Baso # (Auto) 100 ESR Sodium 136 L Potassium 4.1 Chloride 107 Carbon Dioxide 22 BUN 23 H Creatinine 0.88 Estimated GFR > 60 BUN/Creatinine Ratio 26.1 H Glucose 107 H Lactate Calcium 8.8 Total Bilirubin AST ALT Alkaline Phosphatase C-Reactive Protein 28.9 H Total Protein Albumin Globulin Albumin/Globulin Ratio Procalcitonin 0.80 H Urine Color Urine Appearance Urine pH Ur Specific [place] Urine Protein Urine Glucose (UA) Urine Ketones Urine Occult Blood Urine Nitrate Urine Bilirubin Urine Urobilinogen Ur Leukocyte Esterase Urine RBC Urine WBC Ur Squamous Epith Cells Urine Bacteria Ur Culture Indicated? Vol Urine Centrifuged Nasal Screen MRSA (PCR) PFSH Social History household members: friend(s) Smoking Status: Current every day smoker alcohol intake: current Discharge Plan Discharge Plan Patient Disposition: Home Provider Discharge Comment: Followup at [facility] tomorrow Discharge orders & Medications Prescriptions: New clonidine HCl 0.1 mg Tablet 0.1 mg PO BID Qty: 4 0RF methadone 10 mg Tablet 40 mg PO DAILY Qty: 1 0RF oxycodone 5 mg Tablet 10 mg PO Q12HR PRN (Reason: Pain, Severe (7-10)) Qty: 4 0RF cefuroxime axetil 500 mg tablet 500 mg PO BID Qty: 14 0RF Follow up/Referrals: Doctor Crystal, [Primary Care Provider] - Visit Report/Discharge Packet Stand Alone Forms: Patient Portal/API, Stroke Signs & Symptoms Discharge Data Primary Care Provider: Doctor Crystal Quality MIPS - Admit I confirm the patient?s Advance Care Plan is present, Code status is documented, Surrogate decision maker is in patient?s record [If Yes, STOP here]: Yes MIPS - Meds 'Current medications' to include all prescriptions, [id number] products, herbals, cannabis/cannabidiol products, and vitamin/mineral/dietary (nutritional) supplements. I have utilized all available resources to obtain, update, or review the patient?s current medications. [If Yes, STOP here]: Yes MIPS - DC The patient has a history of heart transplant or Left Ventricular Assist Device (LVAD). If yes, STOP here.: No The patient has current or prior documentation of left ventricular ejection fraction (LVEF) less than or equal to 40%, or moderate or severely depressed left ventricular systolic function.: No A. The patient was prescribed or already taking an Angiotensin-Converting Enzyme (CAMERON) Inhibitor, or Angiotensin Receptor Mukund (ARB).: No B. The patient was prescribed or already taking a beta-mukund. [If Yes to Both A & B, STOP here]: No Patient not prescribed/taking CAMERON or ARB, no reason given.: No Patient not prescribed/taking beta-mukund, no reason given.: No PROFEE Charge Codes Discharge inpatient/observation: 10040
--- NOTE | 2023-06-29 10:09 | PC.NURSE ---
Discharge Note Patient A&O, VSS, RA, no complaints of pain/discomfort. Patient agreeable to discharge plan. Discharge packet reviewed with patient, all questions/concerns addressed. PIV/TELE discontinued. Patient able to dress self and pack all belongings. Patient taken via wheelchair to await ride at main entrance.
--- NOTE | 2023-06-29 10:14 | CM.DPNOTE ---
DCP Note BLAST SETTER reviewed EMR. Per chart review, from BLAST [facility]TER ED assessment, no anticipate dc needs at this time. Per provider in morning rounds, concern about f/u for fentanyl use. Provider reported he believed pt planned to f/u with [facility] tomorrow. BLAST SETTER attempted to meet with pt after rounds, pt already dc'd home. [facility] center closed on Sundays, Unable to confirm with pt enrollment status with [facility]. Plan: dc home today. no CM needs at this time. CM team will continue to follow as able. NICOLE Martinez
--- NOTE | 2023-07-03 07:56 | PC.NURSE ---
Late Entry: Vancomycin infusion initiated 06/28 at 0245 complete at 0416.
--- NOTE | 2023-07-11 14:05 | PC.NURSE ---
Late Entry: Ceftriaxone infusion initiated at 0811 complete at 0840.
== END 2023-06-29 10:04 | disposition home or self-care (01) ==
LOC: ED 14:11 → AC 14:51
PROVIDERS: Admitting Provider Student in an Organized Health Care Education/Training Program; Emergency Provider Emergency Medicine; Referring Provider Emergency Medicine; Visit Provider Student in an Organized Health Care Education/Training Program
DX: A41.9 Sepsis, unspecified organism (principal); L03.115 Cellulitis of right lower limb; L03.116 Cellulitis of left lower limb; I87.8 Other specified disorders of veins; K59.00 Constipation, unspecified; F11.13 Opioid abuse with withdrawal; F15.13 Other stimulant abuse with withdrawal; F17.210 Nicotine dependence, cigarettes, uncomplicated
CPT/HCPCS: 36415; 72158; 80048; 80053; 81001; 83605; 84145; 85025; 85651; 86140; 87040; 87797; 96361; 96365; 96366; 96367; 96372; 96375; 99284; G0378; A9579; J0696; J1650; J1885

== ENCOUNTER 2023-07-04 01:45 | Emergency (ER) | payer OTHER, MEDICAID, SELFPAY ==
[2023-06-28 16:08] VITALS: BMI 25.8
[2023-07-04] VITALS (23 sets, daily range): BP systolic 118–168; BP diastolic 75–110; PULSE 89–103; RESP 16–18; TEMP 36.8; O2SAT 94–99; BMI 25.1
--- NOTE | 2023-07-04 01:49 | ED_ITS ---
HPI - General Adult <Chandra Guzmán MD - Last Filed: 07/04/23 16:33> General Stated complaint: bilateral leg pain Time Seen by Provider: 07/04/23 01:46 History of Present Illness HPI narrative: 48-year-old male arrived by EMS with complaint of not being able to walk for the last ten days, feels weak, noted by EMS to have drug paraphernalia around him, medication this at triage included methadone and oxycodone. Recent ED visit here 06/22/2023 diagnosis cellulitis, ultrasound lower extremity negative for DVT, prescribed doxycycline. Seen ED visit here again 06/28/2023 with back pain in trouble walking, poor effort leg lift noted on physical exam examining provider, MRI lumbar spine showed no acute, admitted for further IV antibiotics and for detox from methadone. Right lower extremity with some slight redness again. No fevers or chills. Says it is legs hurt and he has difficulty with walking ongoing. No incontinence of urine or stool. Admits to last use fentanyl yesterday, last use methamphetamine yesterday. Related Data Previous Rx's Medication Instructions Recorded cefuroxime axetil 500 mg tablet 500 mg PO BID #14 tabs 06/29/23 clonidine HCl 0.1 mg tablet 0.1 mg PO BID #4 tabs 06/29/23 methadone 10 mg tablet 40 mg (4 x 10 mg) PO DAILY #1 tab 06/29/23 oxycodone 5 mg tablet 10 mg (2 x 5 mg) PO Q12HR PRN 06/29/23 Pain, Severe (7-10) #4 tabs prednisone 20 mg tablet 40 mg (2 x 20 mg) PO DAILY #10 tabs 07/04/23 Allergies Allergy/AdvReac Type Severity Reaction Status Date / Time No Known Drug Allergies Allergy Verified 06/22/23 17:18 Patient History <Chandra Guzmán MD - Last Filed: 07/04/23 16:33> Social History household members: friend(s) Smoking Status: Current every day smoker alcohol intake: current Smoking Status: Current every day smoker alcohol intake frequency: 0-2 drinks per day Substance Use Type: opiates, methamphetamine and prescription drug Exam <Chandra Guzmán MD - Last Filed: 07/04/23 16:33> Narrative Exam Narrative: GENERAL: [48] year old patient appears stated age. Well-developed patient, in mild distress. HEAD: Atraumatic. Normocephalic. EYES: Pupils equal round and reactive. Extraocular motions intact. No scleral icterus. No injection or drainage. Wearing upper denture plate ENT: Nose without bleeding, purulent drainage. Throat without erythema, tonsillar hypertrophy or exudate. Airway patent. NECK: Trachea midline. Non tender CARDIOVASCULAR: Regular rate and rhythm without murmurs, gallops, or rubs. RESPIRATORY: Clear to auscultation. Breath sounds equal bilaterally. No wheezes, rales, or rhonchi. GASTROINTESTINAL: Abdomen soft, non-tender, nondistended. EXTREMITIES: No edema or joint tenderness. Poor hygeine, dirty hands skin and fingernails BACK: Nontender without deformity or crepitance. No flank tenderness. NEURO: AOx3. Straight leg raise little distance either heel off bed right and left side, however very little pushing down contralateral side, very little effort seems to be made toward lifting. 5/5 upper extremity movements however. No obvious facial droop, speech seems fairly clear SKIN: Slight erythema right anterior distal foreleg, no weeping, no wounds, no significant swelling Initial Vital Signs Initial Vital Signs: Vital Signs Pulse Rate 97 H 07/04/23 01:49 Pulse Oximetry 96 07/04/23 01:49 <Lucia Cisneros DO - Last Filed: 07/04/23 15:25> Initial Vital Signs Initial Vital Signs: Vital Signs Pulse Rate 97 H 07/04/23 01:49 Pulse Oximetry 96 07/04/23 01:49 Course <Chandra Guzmán MD - Last Filed: 07/04/23 16:33> Orders Ordered: ED Orders 07/04/23 07:31 CT head/brain wo con Stat MR lumbar spine wo/w con Stat MR thoracic spine wo/w con Stat 07/04/23 09:43 CT abdomen pelvis w con Stat 07/04/23 11:43 Blood Culture Stat CRP [C-Reactive Protein Quant] Stat Procalcitonin Stat Discontinued Medications Sodium Chloride (Normal Saline 0.9%) 1,000 mls @ 150 mls/hr IV CONT WINNIE Last Infusion: 07/04/23 13:57 Dose: Infused Documented By: Infusion: 07/04/23 11:56 Dose: 150 mls/hr Documented By: Infusion: 07/04/23 10:55 Dose: 0 mls/hr Documented By: Admin: 07/04/23 05:52 Dose: 150 mls/hr Documented By: Sodium Chloride (Normal Saline 0.9%) 1,000 mls @ 1,000 mls/hr IV BOLUS ONE Stop: 07/04/23 06:17 Last Infusion: 07/04/23 05:52 Dose: Infused Documented By: Admin: 07/04/23 03:30 Dose: 1,000 mls/hr Documented By: Lorazepam (Lorazepam 2 Mg/Ml Inj) 1 mg IV NOW ONE Stop: 07/04/23 10:46 Last Admin: 07/04/23 10:48 Dose: 1 mg Documented By: BRIANA Methadone HCl (Methadone 10 Mg Tablet) 40 mg PO NOW ONE Stop: 07/04/23 07:35 Last Admin: 07/04/23 08:08 Dose: 40 mg Documented By: BERNARD Prednisone (Prednisone 20 Mg Tablet) 60 mg PO NOW ONE Stop: 07/04/23 13:54 Last Admin: 07/04/23 14:06 Dose: 60 mg Documented By: BERNARD Vital Signs Vital signs: Vital Signs - 8 hr 07/04/23 09:45 07/04/23 11:56 07/04/23 12:30 Temperature Pulse Rate 89 90 92 H Respiratory Rate 16 Blood Pressure 168/91 H 141/75 H 134/86 Pulse Oximetry 97 98 97 Oxygen Delivery Method Room Air Room Air Room Air 07/04/23 13:00 07/04/23 13:30 07/04/23 14:15 Temperature Pulse Rate 94 H 98 H Respiratory Rate Blood Pressure 136/93 H 151/84 H 123/87 Pulse Oximetry 95 96 Oxygen Delivery Method Room Air Room Air 07/04/23 14:26 Temperature 98.3 F Pulse Rate 103 H Respiratory Rate 16 Blood Pressure 125/87 Pulse Oximetry 99 Oxygen Delivery Method <Lucia Cisneros DO - Last Filed: 07/04/23 15:25> Orders Ordered: ED Orders 07/04/23 07:31 CT head/brain wo con Stat MR lumbar spine wo/w con Stat MR thoracic spine wo/w con Stat 07/04/23 09:43 CT abdomen pelvis w con Stat 07/04/23 11:43 Blood Culture Stat CRP [C-Reactive Protein Quant] Stat Procalcitonin Stat Discontinued Medications Sodium Chloride (Normal Saline 0.9%) 1,000 mls @ 150 mls/hr IV CONT WINNIE Last Infusion: 07/04/23 13:57 Dose: Infused Documented By: Infusion: 07/04/23 11:56 Dose: 150 mls/hr Documented By: Infusion: 07/04/23 10:55 Dose: 0 mls/hr Documented By: Admin: 07/04/23 05:52 Dose: 150 mls/hr Documented By: Sodium Chloride (Normal Saline 0.9%) 1,000 mls @ 1,000 mls/hr IV BOLUS ONE Stop: 07/04/23 06:17 Last Infusion: 07/04/23 05:52 Dose: Infused Documented By: Admin: 07/04/23 03:30 Dose: 1,000 mls/hr Documented By: Lorazepam (Lorazepam 2 Mg/Ml Inj) 1 mg IV NOW ONE Stop: 07/04/23 10:46 Last Admin: 07/04/23 10:48 Dose: 1 mg Documented By: BRIANA Methadone HCl (Methadone 10 Mg Tablet) 40 mg PO NOW ONE Stop: 07/04/23 07:35 Last Admin: 07/04/23 08:08 Dose: 40 mg Documented By: BERNARD Prednisone (Prednisone 20 Mg Tablet) 60 mg PO NOW ONE Stop: 07/04/23 13:54 Last Admin: 07/04/23 14:06 Dose: 60 mg Documented By: BERNARD Vital Signs Vital signs: Vital Signs - 8 hr 07/04/23 09:45 07/04/23 11:56 07/04/23 12:30 Temperature Pulse Rate 89 90 92 H Respiratory Rate 16 Blood Pressure 168/91 H 141/75 H 134/86 Pulse Oximetry 97 98 97 Oxygen Delivery Method Room Air Room Air Room Air 07/04/23 13:00 07/04/23 13:30 07/04/23 14:15 Temperature Pulse Rate 94 H 98 H Respiratory Rate Blood Pressure 136/93 H 151/84 H 123/87 Pulse Oximetry 95 96 Oxygen Delivery Method Room Air Room Air 07/04/23 14:26 Temperature 98.3 F Pulse Rate 103 H Respiratory Rate 16 Blood Pressure 125/87 Pulse Oximetry 99 Oxygen Delivery Method Medical Decision Making <Chandra Guzmán MD - Last Filed: 07/04/23 16:33> Medical Records Medical records reviewed: Yes I reviewed the patient's medical records. Medical records narrative: Reviewed ED record 06/28/2023, also [facility] discharge summary from that same date. Lab Data Lab results reviewed: Yes I reviewed the patient's lab results. 07/04/23 02:45 07/04/23 02:45 Labs: Lab Results 07/04/23 07/04/23 07/04/23 Range/Units 02:24 02:24 02:45 WBC 11.5 H (4.5-11.0) X10^3/uL RBC 4.28 L (4.5-5.9) X10^6/uL Hgb 11.7 L (13.5-17.5) g/dL Hct 35.2 L (41-53) % MCV 82.1 (80-100) fL MCH 27.4 (26-34) PG MCHC 33.3 (30-36) % RDW 14.4 (11.6-14.8) % Plt Count 775 H (150-400) X10^3/uL Neut % (Auto) 79.5 H (50-75) % Lymph % (Auto) 13.2 L (25-40) % [place] % (Auto) 6.0 (3-14) % Eos % (Auto) 0.7 L (2-4) % Baso % (Auto) 0.6 (0-2) % Neut # (Auto) 9200 H (3314-4968) /uL Lymph # (Auto) 1500 (3596-1649) /uL [place] # (Auto) 700 (0-900) /uL Eos # (Auto) 100 (0-450) /uL Baso # (Auto) 100 (0-100) /uL Platelet Estimate Increased on smear RBC Morphology Normal morphology ESR 93 H (0-15) MM/HR PT 15.0 H (9.4-12.5) SECONDS INR 1.3 (0.9-1.3) APTT 32 (25.1-36.5) SECONDS Sodium 135 L (137-145) mmol/L Potassium 4.3 (3.4-5.1) mmol/L Chloride 102 (98-107) mmol/L Carbon Dioxide 24 (22-32) mmol/L BUN 23 H (9-20) mg/dL Creatinine 0.77 (0.66-1.25) mg/dL Estimated GFR > 60 (>60) mL/min BUN/Creatinine Ratio 29.9 H (6-22) Glucose 114 H (70-100) mg/dL Lactate 0.8 (0.7-2.1) mmol/L Calcium 9.1 (8.4-10.2) mg/dL Total Bilirubin 0.8 (0.2-1.3) mg/dL AST 73 H (17-59) IU/L ALT 54 H (<50) IU/L Alkaline Phosphatase 144 H (38-126) U/L Ammonia 23 (9-30) umol/L Total Creatine Kinase (55-170) U/L C-Reactive Protein 385.9 H (<1.0) mg/dL Total Protein 6.9 (6.3-8.2) g/dL Albumin 3.4 L (3.5-5.0) g/dL Globulin 3.5 (1.7-4.1) g/dL Albumin/Globulin Ratio 1.0 (1.0-2.8) Procalcitonin (<0.5) ng/mL TSH 1.89 (0.47-4.68) uIU/mL Prolactin 6.2 (3.7-17.9) ng/mL Urine Color Yellow Urine Appearance Clear Urine pH 5.5 Normal (4.5-8.0) Ur Specific [place] >=1.030 H (1.000-1.035) Urine Protein Trace H (Negative) Urine Glucose (UA) Negative (Negative) g/dL Urine Ketones 1+ H (NEGATIVE) Urine Occult Blood Trace-intact (Negative) Urine Nitrate Negative (Negative) Urine Bilirubin Negative (NEGATIVE) Urine Urobilinogen 0.2 (0.2) E.U./dL Ur Leukocyte Esterase Negative (NEGATIVE) Urine RBC 0-1/hpf (0-5/HPF) Urine WBC None seen (0-5/HPF) Ur Squamous Epith Cells 0-1 /hpf (0-5/HPF) Urine Bacteria None seen (None) Ur Culture Indicated? Cult not indicated Vol Urine Centrifuged 10ml (spun) Salicylates < 1.0 (<20) mg/dL U Opiates 300ng/mL cut Negative (Negative) Ur Oxycodone Screen Negative (Negative) Urine Methadone Screen Positive H (Negative) Acetaminophen < 10 (10-30) ug/mL Ur Barbiturates Screen Negative (Negative) U Tricyclic Antidepress Negative (Negative) Ur Phencyclidine Scrn Negative (Negative) Ur Amphetamines Screen Positive H (Negative) U Methamphetamines Scrn Positive H (Negative) Ur MDMA Scrn (Ecstasy) Negative (Negative) U Benzodiazepines Scrn Negative (Negative) Urine Cocaine Screen Negative (Negative) U Marijuana (THC) Screen Negative (Negative) Urine Specific [place] Normal (Normal) Ethyl Alcohol < 10 ( - 10) mg/dL Ur Creatinine Normal (Normal) 07/04/23 07/04/23 Range/Units 04:32 11:43 WBC (4.5-11.0) X10^3/uL RBC (4.5-5.9) X10^6/uL Hgb (13.5-17.5) g/dL Hct (41-53) % MCV (80-100) fL MCH (26-34) PG MCHC (30-36) % RDW (11.6-14.8) % Plt Count (150-400) X10^3/uL Neut % (Auto) (50-75) % Lymph % (Auto) (25-40) % [place] % (Auto) (3-14) % Eos % (Auto) (2-4) % Baso % (Auto) (0-2) % Neut # (Auto) (2282-5691) /uL Lymph # (Auto) (7539-8879) /uL [place] # (Auto) (0-900) /uL Eos # (Auto) (0-450) /uL Baso # (Auto) (0-100) /uL Platelet Estimate RBC Morphology ESR (0-15) MM/HR PT (9.4-12.5) SECONDS INR (0.9-1.3) APTT (25.1-36.5) SECONDS Sodium (137-145) mmol/L Potassium (3.4-5.1) mmol/L Chloride (98-107) mmol/L Carbon Dioxide (22-32) mmol/L BUN (9-20) mg/dL Creatinine (0.66-1.25) mg/dL Estimated GFR (>60) mL/min BUN/Creatinine Ratio (6-22) Glucose (70-100) mg/dL Lactate (0.7-2.1) mmol/L Calcium (8.4-10.2) mg/dL Total Bilirubin (0.2-1.3) mg/dL AST (17-59) IU/L ALT (<50) IU/L Alkaline Phosphatase (38-126) U/L Ammonia (9-30) umol/L Total Creatine Kinase 763 H (55-170) U/L C-Reactive Protein 25.4 H (<1.0) mg/dL Total Protein (6.3-8.2) g/dL Albumin (3.5-5.0) g/dL Globulin (1.7-4.1) g/dL Albumin/Globulin Ratio (1.0-2.8) Procalcitonin 0.417 (<0.5) ng/mL TSH (0.47-4.68) uIU/mL Prolactin (3.7-17.9) ng/mL Urine Color Urine Appearance Urine pH (4.5-8.0) Ur Specific [place] (1.000-1.035) Urine Protein (Negative) Urine Glucose (UA) (Negative) g/dL Urine Ketones (NEGATIVE) Urine Occult Blood (Negative) Urine Nitrate (Negative) Urine Bilirubin (NEGATIVE) Urine Urobilinogen (0.2) E.U./dL Ur Leukocyte Esterase (NEGATIVE) Urine RBC (0-5/HPF) Urine WBC (0-5/HPF) Ur Squamous Epith Cells (0-5/HPF) Urine Bacteria (None) Ur Culture Indicated? Vol Urine Centrifuged Salicylates (<20) mg/dL U Opiates 300ng/mL cut (Negative) Ur Oxycodone Screen (Negative) Urine Methadone Screen (Negative) Acetaminophen (10-30) ug/mL Ur Barbiturates Screen (Negative) U Tricyclic Antidepress (Negative) Ur Phencyclidine Scrn (Negative) Ur Amphetamines Screen (Negative) U Methamphetamines Scrn (Negative) Ur MDMA Scrn (Ecstasy) (Negative) U Benzodiazepines Scrn (Negative) Urine Cocaine Screen (Negative) U Marijuana (THC) Screen (Negative) Urine Specific [place] (Normal) Ethyl Alcohol ( - 10) mg/dL Ur Creatinine (Normal) Urine Dip Bedside Urine Glucose Negative Bedside Urine Bilirubin - Negative Bedside Urine Ketone ++ 40 Urine Specific [place] 1.03 Bedside Urine Occult Blood +/- Bedside Urine pH 5.5 Bedside Urine Protein +/- 15 Bedside Urine Urobilinogen - Negative Bedside Urine Nitrite - Negative Bedside Urine Leukocytes +/- 15 Esterase Point of care testing: Urine Dip Bedside Urine Glucose Negative Bedside Urine Bilirubin - Negative Bedside Urine Ketone ++ 40 Urine Specific [place] 1.03 Bedside Urine Occult Blood +/- Bedside Urine pH 5.5 Bedside Urine Protein +/- 15 Bedside Urine Urobilinogen - Negative Bedside Urine Nitrite - Negative Bedside Urine Leukocytes +/- 15 Esterase MDM Narrative Medical decision making narrative: 48-year-old male with history of ongoing drug use, admits to fentanyl and methamphetamine use as recently as yesterday, recent admit with lower extremity cellulitis, should be taking oral antibiotic course still, recent 06/28/2023 lumbar spine MRI study showed no significant lesions, supposedly not able to walk for the last 10 days, despite having been admitted and discharged. Afebrile, sirs screen negative, minimal erythema to anterior distal right foreleg, consistent with a resolving cellulitis, continue oral Keflex antibiotic. He is requesting methadone but per discharge summary went through withdrawal protocol from methadone. He seems to exhibit med seeking behavior, however seems to reportedly not be able to walk. Consider further/repeat MRI spinal imaging, consider PT consult. Signed out to Dr Cisneros, [facility] ED shift physician <Lucia Cisneros, DO - Last Filed: 07/04/23 15:25> Lab Data Labs: Lab Results 07/04/23 07/04/23 07/04/23 Range/Units 02:24 02:24 02:45 WBC 11.5 H (4.5-11.0) X10^3/uL RBC 4.28 L (4.5-5.9) X10^6/uL Hgb 11.7 L (13.5-17.5) g/dL Hct 35.2 L (41-53) % MCV 82.1 (80-100) fL MCH 27.4 (26-34) PG MCHC 33.3 (30-36) % RDW 14.4 (11.6-14.8) % Plt Count 775 H (150-400) X10^3/uL Neut % (Auto) 79.5 H (50-75) % Lymph % (Auto) 13.2 L (25-40) % [place] % (Auto) 6.0 (3-14) % Eos % (Auto) 0.7 L (2-4) % Baso % (Auto) 0.6 (0-2) % Neut # (Auto) 9200 H (2816-8940) /uL Lymph # (Auto) 1500 (1029-1516) /uL [place] # (Auto) 700 (0-900) /uL Eos # (Auto) 100 (0-450) /uL Baso # (Auto) 100 (0-100) /uL Platelet Estimate Increased on smear RBC Morphology Normal morphology ESR 93 H (0-15) MM/HR PT 15.0 H (9.4-12.5) SECONDS INR 1.3 (0.9-1.3) APTT 32 (25.1-36.5) SECONDS Sodium 135 L (137-145) mmol/L Potassium 4.3 (3.4-5.1) mmol/L Chloride 102 (98-107) mmol/L Carbon Dioxide 24 (22-32) mmol/L BUN 23 H (9-20) mg/dL Creatinine 0.77 (0.66-1.25) mg/dL Estimated GFR > 60 (>60) mL/min BUN/Creatinine Ratio 29.9 H (6-22) Glucose 114 H (70-100) mg/dL Lactate 0.8 (0.7-2.1) mmol/L Calcium 9.1 (8.4-10.2) mg/dL Total Bilirubin 0.8 (0.2-1.3) mg/dL AST 73 H (17-59) IU/L ALT 54 H (<50) IU/L Alkaline Phosphatase 144 H (38-126) U/L Ammonia 23 (9-30) umol/L Total Creatine Kinase (55-170) U/L C-Reactive Protein 385.9 H (<1.0) mg/dL Total Protein 6.9 (6.3-8.2) g/dL Albumin 3.4 L (3.5-5.0) g/dL Globulin 3.5 (1.7-4.1) g/dL Albumin/Globulin Ratio 1.0 (1.0-2.8) Procalcitonin (<0.5) ng/mL TSH 1.89 (0.47-4.68) uIU/mL Prolactin 6.2 (3.7-17.9) ng/mL Urine Color Yellow Urine Appearance Clear Urine pH 5.5 Normal (4.5-8.0) Ur Specific [place] >=1.030 H (1.000-1.035) Urine Protein Trace H (Negative) Urine Glucose (UA) Negative (Negative) g/dL Urine Ketones 1+ H (NEGATIVE) Urine Occult Blood Trace-intact (Negative) Urine Nitrate Negative (Negative) Urine Bilirubin Negative (NEGATIVE) Urine Urobilinogen 0.2 (0.2) E.U./dL Ur Leukocyte Esterase Negative (NEGATIVE) Urine RBC 0-1/hpf (0-5/HPF) Urine WBC None seen (0-5/HPF) Ur Squamous Epith Cells 0-1 /hpf (0-5/HPF) Urine Bacteria None seen (None) Ur Culture Indicated? Cult not indicated Vol Urine Centrifuged 10ml (spun) Salicylates < 1.0 (<20) mg/dL U Opiates 300ng/mL cut Negative (Negative) Ur Oxycodone Screen Negative (Negative) Urine Methadone Screen Positive H (Negative) Acetaminophen < 10 (10-30) ug/mL Ur Barbiturates Screen Negative (Negative) U Tricyclic Antidepress Negative (Negative) Ur Phencyclidine Scrn Negative (Negative) Ur Amphetamines Screen Positive H (Negative) U Methamphetamines Scrn Positive H (Negative) Ur MDMA Scrn (Ecstasy) Negative (Negative) U Benzodiazepines Scrn Negative (Negative) Urine Cocaine Screen Negative (Negative) U Marijuana (THC) Screen Negative (Negative) Urine Specific [place] Normal (Normal) Ethyl Alcohol < 10 ( - 10) mg/dL Ur Creatinine Normal (Normal) 07/04/23 07/04/23 Range/Units 04:32 11:43 WBC (4.5-11.0) X10^3/uL RBC (4.5-5.9) X10^6/uL Hgb (13.5-17.5) g/dL Hct (41-53) % MCV (80-100) fL MCH (26-34) PG MCHC (30-36) % RDW (11.6-14.8) % Plt Count (150-400) X10^3/uL Neut % (Auto) (50-75) % Lymph % (Auto) (25-40) % [place] % (Auto) (3-14) % Eos % (Auto) (2-4) % Baso % (Auto) (0-2) % Neut # (Auto) (3235-6385) /uL Lymph # (Auto) (8629-5752) /uL [place] # (Auto) (0-900) /uL Eos # (Auto) (0-450) /uL Baso # (Auto) (0-100) /uL Platelet Estimate RBC Morphology ESR (0-15) MM/HR PT (9.4-12.5) SECONDS INR (0.9-1.3) APTT (25.1-36.5) SECONDS Sodium (137-145) mmol/L Potassium (3.4-5.1) mmol/L Chloride (98-107) mmol/L Carbon Dioxide (22-32) mmol/L BUN (9-20) mg/dL Creatinine (0.66-1.25) mg/dL Estimated GFR (>60) mL/min BUN/Creatinine Ratio (6-22) Glucose (70-100) mg/dL Lactate (0.7-2.1) mmol/L Calcium (8.4-10.2) mg/dL Total Bilirubin (0.2-1.3) mg/dL AST (17-59) IU/L ALT (<50) IU/L Alkaline Phosphatase (38-126) U/L Ammonia (9-30) umol/L Total Creatine Kinase 763 H (55-170) U/L C-Reactive Protein 25.4 H (<1.0) mg/dL Total Protein (6.3-8.2) g/dL Albumin (3.5-5.0) g/dL Globulin (1.7-4.1) g/dL Albumin/Globulin Ratio (1.0-2.8) Procalcitonin 0.417 (<0.5) ng/mL TSH (0.47-4.68) uIU/mL Prolactin (3.7-17.9) ng/mL Urine Color Urine Appearance Urine pH (4.5-8.0) Ur Specific [place] (1.000-1.035) Urine Protein (Negative) Urine Glucose (UA) (Negative) g/dL Urine Ketones (NEGATIVE) Urine Occult Blood (Negative) Urine Nitrate (Negative) Urine Bilirubin (NEGATIVE) Urine Urobilinogen (0.2) E.U./dL Ur Leukocyte Esterase (NEGATIVE) Urine RBC (0-5/HPF) Urine WBC (0-5/HPF) Ur Squamous Epith Cells (0-5/HPF) Urine Bacteria (None) Ur Culture Indicated? Vol Urine Centrifuged Salicylates (<20) mg/dL U Opiates 300ng/mL cut (Negative) Ur Oxycodone Screen (Negative) Urine Methadone Screen (Negative) Acetaminophen (10-30) ug/mL Ur Barbiturates Screen (Negative) U Tricyclic Antidepress (Negative) Ur Phencyclidine Scrn (Negative) Ur Amphetamines Screen (Negative) U Methamphetamines Scrn (Negative) Ur MDMA Scrn (Ecstasy) (Negative) U Benzodiazepines Scrn (Negative) Urine Cocaine Screen (Negative) U Marijuana (THC) Screen (Negative) Urine Specific [place] (Normal) Ethyl Alcohol ( - 10) mg/dL Ur Creatinine (Normal) Urine Dip Bedside Urine Glucose Negative Bedside Urine Bilirubin - Negative Bedside Urine Ketone ++ 40 Urine Specific [place] 1.03 Bedside Urine Occult Blood +/- Bedside Urine pH 5.5 Bedside Urine Protein +/- 15 Bedside Urine Urobilinogen - Negative Bedside Urine Nitrite - Negative Bedside Urine Leukocytes +/- 15 Esterase Point of care testing: Urine Dip Bedside Urine Glucose Negative Bedside Urine Bilirubin - Negative Bedside Urine Ketone ++ 40 Urine Specific [place] 1.03 Bedside Urine Occult Blood +/- Bedside Urine pH 5.5 Bedside Urine Protein +/- 15 Bedside Urine Urobilinogen - Negative Bedside Urine Nitrite - Negative Bedside Urine Leukocytes +/- 15 Esterase Imaging Data MR lumbar: Radiologist's Impression: PROCEDURE: MR LUMBAR SPINE WO/W CON INDICATIONS: can't walk TECHNIQUE: Noncontrast sagittal T1 spin echo and T2 fast spin echo, sagittal STIR, axial T1 and T2 fast spin echo through the lumbar spine. In cases with scoliosis, additional coronal T2 fast spin echo may be performed. After the administration of contrast, sagittal and axial T1 spin echo with fat saturation through the lumbar spine. COMPARISON: [facility], , MR LUMBAR SPINE WO/W CON, 06/28/2023, 12:14. FINDINGS: Image quality: Excellent. Alignment and curvature: There is normal bony alignment. Marrow: Marrow is of normal overall signal. No acute vertebral body compression fractures. No suspicious marrow enhancement. Spinal cord: Conus medullaris terminates at the L1 level. Visualized spinal cord demonstrates normal signal, without suspicious enhancement. Paraspinous soft tissues: No paravertebral masses or abnormal enhancement. T12-L1: Normal appearance. L1-L2: Normal appearance. L2-L3: Normal appearance. L3-L4: Normal appearance. L4-L5: Posterior annulus tear. Diffuse disc bulge. Facet hypertrophy. Mild canal stenosis. No significant foraminal stenosis. L5-S1: Posterior annulus tear. Diffuse posterior disc bulge, asymmetric to the right. This results in right lateral recess stenosis. There is facet hypertrophy. No significant foraminal stenosis. IMPRESSION: 1. There are posterior annulus tears at L4-L5 and L5-S1. In the acute setting, an annulus tear can be associated with marked pain on motion and inability to ambulate. However, most annulus tears are chronic and asymptomatic. 2. Lower lumbar facet arthropathy. 3. Mild canal stenosis at L4-L5. Right lateral recess stenosis at L5-S1. 4. No evidence of osteomyelitis or discitis. Dictated by: Ephraim Wilde M.D. on 07/04/2023 at 12:11 Approved by: Ephraim Wilde M.D. on 07/04/2023 at 12:23 MR thoracic: Radiologist's Impression: PROCEDURE: MR THORACIC SPINE WO/W CON INDICATIONS: can't walk TECHNIQUE: Noncontrast sagittal T1 spin echo and T2 fast spin echo, sagittal STIR, axial T1 and T2 fast spin echo through the thoracic spine. After the administration of contrast, axial and sagittal T1 spin echo with fat saturation through the thoracic spine. COMPARISON: [facility], CT, CT ABDOMEN PELVIS W CON, 07/04/2023, 10:13. [facility], MR, MR LUMBAR SPINE WO/W CON, 07/04/2023, 10:18. [facility], MR, MR LUMBAR SPINE WO/W CON, 06/28/2023, 12:14. FINDINGS: Image quality: Excellent. Alignment and curvature: There is normal bony alignment. Marrow: There is a subtle area of vague decreased T1 signal and increased T2 signal with enhancement present in the right posterior inferior aspect of the T6 vertebral body. Extends minimally into the pedicle. The lesion measures approximately 1.3 x 1.1 cm on axial post gadolinium image 29 of series 20. Based on the CT of the abdomen and pelvis, the signal abnormality may be secondary to degenerative arthritis at the right [address] image 3 of series 2. 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 Reference CT image 4 of series 2 and post gadolinium sagittal image 6 of series 19.. No acute vertebral body compression fractures. Spinal cord: Visualized spinal cord is of normal signal and size, without abnormal enhancement. Paraspinous soft tissues: No paravertebral masses or abnormal enhancement. Miscellaneous: Central canal and foramina appear widely patent at all scanned levels. IMPRESSION: 1. No canal stenosis or foraminal stenosis. 2. Subtle signal abnormalities with enhancement in the right posterior inferior aspect of T6 and left posterior inferior aspect of T7 appear to potentially be related to degenerative arthritis involving the right costovertebral junction of T6 and the left costovertebral junction of T7. These are less likely related to metastatic lesions. They are not consistent with an infectious process. Dictated by: Ephraim Wilde M.D. on 07/04/2023 at 11:56 ct head: Radiologist's Impression: PROCEDURE: CT HEAD/BRAIN WO CON INDICATIONS: can't walk 10 days TECHNIQUE: Noncontrast 4.5 mm thick angled axial sections acquired from the foramen magnum to the vertex, with coronal and sagittal reformats. For radiation dose reduction, the following was used: automated exposure control, adjustment of mA and/or kV according to patient size. COMPARISON: None. FINDINGS: Image quality: Diagnostic. CSF spaces: Basal cisterns are patent. No extra-axial fluid collections. Ventricles are normal in size and shape. Brain: No midline shift. No intracranial masses or hemorrhage. Junior-white matter interface is normal. Skull and face: Calvarium and visualized facial bones are intact, without suspicious lesions. Sinuses: Visualized sinuses and mastoids are clear. IMPRESSION: 1. No acute intracranial process. Dictated by: Dione Wilkins M.D. on 07/04/2023 at 8:11 CT scan - abdomen/pelvis: Radiologist's Impression: PROCEDURE: CT ABDOMEN PELVIS W CON INDICATIONS: sever right hip pain very high ESR TECHNIQUE: After the administration of intravenous contrast, axial sections acquired from the lung bases to the pubic symphysis. Coronal and sagittal reformats were performed. For radiation dose reduction, the following was used: automated exposure control, adjustment of mA and/or kV according to patient size. COMPARISON: None. FINDINGS: Image quality: Diagnostic. Lower Chest: Small hiatal hernia. Otherwise unremarkable. ABDOMEN: Liver: No solid mass. Gallbladder: No radiopaque gallstones or wall thickening. Biliary ducts: No biliary dilation. Pancreas: No ductal dilation. Spleen: Size is within normal limits. Adrenal Glands: No adrenal nodules. Kidneys and Ureters: No hydronephrosis. No solid mass. No complex renal cystic lesion which requires follow up. Stomach and Bowel: Normal colonic caliber, without significant wall thickening. Moderate right colonic fecal debris. Peritoneum: No abnormal intraperitoneal fluid. No free air. Ventral Wall: No significant ventral hernia. Abdominal Nodes: No retroperitoneal or mesenteric adenopathy by size criteria. Vessels: Aorta and inferior vena cava are normal in size. PELVIS: Pelvic Organs: Unremarkable. Bladder: No bladder wall thickening, accounting for underdistention. Pelvic Nodes: No enlarged lymph nodes. Miscellaneous: No inguinal hernias are seen. Bones: No aggressive osseous abnormality. No acute abnormality involving the right hip. IMPRESSION: 1. No acute abdominal process noted. 2. No abnormality identified involving the right hip. 3. Mild hiatal hernia incidentally noted. Dictated by: Ephraim Wilde M.D. 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 Afebrile, sirs screen negative, minimal erythema to anterior distal right foreleg, consistent with a resolving cellulitis, continue oral Keflex antibiotic. He is requesting methadone but per discharge summary went through withdrawal protocol from methadone. He seems to exhibit med seeking behavior, however seems to reportedly not be able to walk. Consider further/repeat MRI spinal imaging, consider PT consult. Signed out to Dr Cisneros, [facility] ED shift physician Dr. Cisneros-received sign-out from Dr. Guzmán I have seen evaluated patient myself. Recent admission for cellulitis had difficulty ambulating had an MRI of lumbar spine of June 27 which did not show any kind of abscess or stenosis presents today with ongoing pain and difficulty walking. He reports that he has been crawling around his house for the last 10 days. He does have a history of substance abuse but denies any sort of injection reports that he smokes fentanyl. He actually does have some pain in his hips. He is able to move his feet he can somewhat bend both of his knees. 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 Difficult to tell this is malingering drug-seeking behavior versus actual pathology. Thoracic spine was not done previously possible CVA Blood work has been reviewed overall reassuring WBCs 11.5 previously 15.1 platelets 775 previously 603, sodium 135, potassium 4.3, chloride 102, carbon dioxide 24, BUN 23 creatinine 0.7 glucose 114, lactate 0.8, AST 73, ALT CPK 763 CRP 385 on 06/29/23 it was 28.9, however on repeat today it is 25.4 It should be noted that the analyzer being used today is new. I suspect that the initial CRP elevation of 385 was false the repeat is 25 which is about his normal. Imaging has been reviewed including MRI of thoracic and lumbar spine CT abdomen and pelvis. No epidural abscess or spinal process. No acute abscess or abnormality in hip or pelvis. Head CT is also negative for acute stroke. He actually is able to ambulate with a walker. 1350 Dr. Centeno hospitalist updated patient's symptoms test results at this time agrees that patient does not need admission to the hospital. May have a myositis may benefit from prednisone after antibiotics Patient is upright able to weightbear and walking. He reports that he is taking his antibiotics but he was not given a dose today in the ED he has been here for about 12 hours. He is given his 1st dose prednisone here. Discharge Plan Departure Patient Disposition: Home Clinical Impression: Myositis Instructions: Polymyositis Activity Restrictions/Additional Instructions: *You have been diagnosed with myositis *What to do: At this time please keep taking your antibiotics. You might have some inflammation process going on prednisone may help. He had a full workup including MRIs and CT *Continue to take medications as directed Keep taking antibiotics Prednisone 40 mg once a day for 5 days start tomorrow *Follow up with your primary care provider in 2-3 days or call [phone] *Return to ER if you should have increasing weakness fever loss of urination or stool or any new, worsening or concerning symptoms Prescriptions: New prednisone 20 mg tablet 40 mg PO DAILY Qty: 10 0RF No Action clonidine HCl 0.1 mg Tablet 0.1 mg PO BID Qty: 4 0RF methadone 10 mg Tablet 40 mg PO DAILY Qty: 1 0RF oxycodone 5 mg Tablet 10 mg PO Q12HR PRN (Reason: Pain, Severe (7-10)) Qty: 4 0RF cefuroxime axetil 500 mg tablet 500 mg PO BID Qty: 14 0RF Referrals: Miscellaneous,Doctor, MD [Primary Care Provider] - Stand Alone Forms: Patient Portal/API
[2023-07-04 02:30] LABS: Appearance Urine UA CLEAR; Bilirubin Urine UA NEGATIVE (NEGATIVE); Color Urine UA YELLOW; Glucose Urine UA NEGATIVE (Negative); Ketones Urine UA 1+ (NEGATIVE); Leukocyte Esterase Urine UA NEGATIVE (NEGATIVE); Nitrite Urine UA NEGATIVE (Negative); Occult Blood Urine UA TRACE-INTACT (Negative); Protein Urine UA TRACE (Negative); Specific Gravity Urine UA >=1.030 (1.000-1.035); Urobilinogen Urine UA 0.2 E.U./dL (0.2); pH Urine UA 5.5 (4.5-8.0)
[2023-07-04 02:37] LABS: UR Morphine/Opiate cutoff 300 Negative (Negative); Ur Creatinine Normal (Normal); Ur Specific Gravity Normal (Normal); Urine Amphetamines Positive (Negative); Urine Barbiturates Negative (Negative); Urine Cocaine Negative (Negative); Urine MDMA Negative (Negative); Urine Methamphetamines Positive (Negative); Urine Phencyclidine Negative (Negative); Urine Tetrahydrocannabinol Negative (Negative); Urine pH Normal (Normal)
[2023-07-04 02:38] LABS: Urine Benzodiazepines Negative (Negative); Urine Methadone Positive (Negative); Urine Oxycodone Negative (Negative); Urine Tricyclic Antidepressant Negative (Negative)
[2023-07-04 02:40] LABS: Bacteria Urine None Seen; Culture Indicated Urine Cult Not Indicated; RBC Urine 0-1/HPF (0-5/HPF); Squamous Epithelial Cell Urine 0-1 /HPF (0-5/HPF); Urine Volume 10mL (spun); WBC Urine None Seen (0-5/HPF)
--- NOTE | 2023-07-04 02:55 | PC.NURSE ---
pt not willing to participate in intake assessment. Declines to attempt to move all extremities.
[2023-07-04 02:58] LABS: Add Manual Diff / Slide Review NO; Basophils Absolute Auto 100 /uL (0-100); Basophils Percent Auto 0.6 % (0-2); Eosinophils Absolute Auto 100 /uL (0-450); Eosinophils Percent Auto 0.7 % (2-4); Hematocrit 35.2 % (41-53); Hemoglobin 11.7 g/dL (13.5-17.5); Lymphocytes Absolute Auto 1500 /uL (1100-4500); Lymphocytes Percent Auto 13.2 % (25-40); Mean Corpuscular HGB Conc 33.3 % (30-36); Mean Corpuscular Hemoglobin 27.4 PG (26-34); Mean Corpuscular Volume 82.1 fL (80-100); Monocytes Absolute Auto 700 /uL (0-900); Neutrophils Absolute Auto 9200 /uL (1500-7000); Neutrophils Percent Auto 79.5 % (50-75); Platelet Count 775 X10^3/uL (150-400); Red Blood Cell Count 4.28 X10^6/uL (4.5-5.9); Red Cell Distribution Width 14.4 % (11.6-14.8); White Blood Cell Count 11.5 X10^3/uL (4.5-11.0)
[2023-07-04 03:13] LABS: INR 1.3 (0.9-1.3)
[2023-07-04 03:16] LABS: PTT Partial Thromboplastin Tim 32 SECONDS (25.1-36.5)
[2023-07-04 03:17] LABS: HEMOLYSIS < 15 (0-50)
--- NOTE | 2023-07-04 03:20 | PC.NURSE ---
[employer] ROOM OPERATOR note: Patient's pulse oximeter rate dropped into the low 80%, this P[employer] GENER[employer] ROOM OPERATOR went into room because of the low sat. Patient had his pulse oximeter off and said he needed a warm blanket. When I asked why he had his pulse oximeter off, he said to get you in here. Showed patient call light and explained to him to use that vs taking off his pulse oximeter. Patient said but it got you in here. Told RN about the encounter.
[2023-07-04 03:21] LABS: Lactate (Lactic Acid) 0.8 mmol/L (0.7-2.1)
[2023-07-04 03:22] LABS: Alanine Aminotransferase 54 IU/L (<50); Albumin 3.4 g/dL (3.5-5.0); Alkaline Phosphatase 144 U/L (38-126); Aspartate Aminotransferase 73 IU/L (17-59); BUN Creatinine Ratio 29.9 (6-22); Bilirubin Total 0.8 mg/dL (0.2-1.3); Blood Urea Nitrogen 23 mg/dL (9-20); Calcium 9.1 mg/dL (8.4-10.2); Carbon Dioxide 24 mmol/L (22-32); Chloride 102 mmol/L (98-107); Estimated Glomerular Filt Rate > 60 mL/min (>60); Globulin 3.5 g/dL (1.7-4.1); Glucose 114 mg/dL (70-100); Potassium 4.3 mmol/L (3.4-5.1); Sodium 135 mmol/L (137-145); Total Protein 6.9 g/dL (6.3-8.2)
[2023-07-04] MEDS: SODIUM CHLORIDE 0.9% 1,000 ML 1000 ML IV (03:30)
[2023-07-04 03:47] LABS: Platelet Estimate Increased on smear; RBC Morphology Normal Morphology
[2023-07-04 04:00] LABS: Ammonia (NH3) 23 umol/L (9-30)
[2023-07-04 04:30] LABS: Acetaminophen < 10 ug/mL (10-30); Salicylate < 1.0 mg/dL (<20)
[2023-07-04 04:39] LABS: Creatine Kinase 763 U/L (55-170)
[2023-07-04 04:50] LABS: Thyroid Stimulating Hormone 1.89 uIU/mL (0.47-4.68)
[2023-07-04 05:01] LABS: Ethanol (ETOH) < 10 mg/dL; Prolactin 6.2 ng/mL (3.7-17.9)
[2023-07-04] MEDS: SODIUM CHLORIDE 0.9% 1,000 ML 150 ML IV (05:52)
--- NOTE | 2023-07-04 07:31 | DI.MRI.S_ITS ---
PROCEDURE: MR LUMBAR SPINE WO/W CON INDICATIONS: can't walk TECHNIQUE: Noncontrast sagittal T1 spin echo and T2 fast spin echo, sagittal STIR, axial T1 and T2 fast spin echo through the lumbar spine. In cases with scoliosis, additional coronal T2 fast spin echo may be performed. After the administration of contrast, sagittal and axial T1 spin echo with fat saturation through the lumbar spine. COMPARISON: [facility], MR, MR LUMBAR SPINE WO/W CON, 06/28/2023, 12:14. FINDINGS: Image quality: Excellent. Alignment and curvature: There is normal bony alignment. Marrow: Marrow is of normal overall signal. No acute vertebral body compression fractures. No suspicious marrow enhancement. Spinal cord: Conus medullaris terminates at the L1 level. Visualized spinal cord demonstrates normal signal, without suspicious enhancement. Paraspinous soft tissues: No paravertebral masses or abnormal enhancement. T12-L1: Normal appearance. L1-L2: Normal appearance. L2-L3: Normal appearance. L3-L4: Normal appearance. L4-L5: Posterior annulus tear. Diffuse disc bulge. Facet hypertrophy. Mild canal stenosis. No significant foraminal stenosis. L5-S1: Posterior annulus tear. Diffuse posterior disc bulge, asymmetric to the right. This results in right lateral recess stenosis. There is facet hypertrophy. No significant foraminal stenosis. IMPRESSION: 1. There are posterior annulus tears at L4-L5 and L5-S1. In the acute setting, an annulus tear can be associated with marked pain on motion and inability to ambulate. However, most annulus tears are chronic and asymptomatic. 2. Lower lumbar facet arthropathy. 3. Mild canal stenosis at L4-L5. Right lateral recess stenosis at L5-S1. 4. No evidence of osteomyelitis or discitis. Dictated by: Ephraim Wilde M.D. on 07/04/2023 at 12:11 Approved by: Ephraim Wilde M.D. on 07/04/2023 at 12:23
--- NOTE | 2023-07-04 07:31 | DI.CT.S_ITS ---
PROCEDURE: CT HEAD/BRAIN WO CON INDICATIONS: can't walk 10 days TECHNIQUE: Noncontrast 4.5 mm thick angled axial sections acquired from the foramen magnum to the vertex, with coronal and sagittal reformats. For radiation dose reduction, the following was used: automated exposure control, adjustment of mA and/or kV according to patient size. COMPARISON: None. FINDINGS: Image quality: Diagnostic. CSF spaces: Basal cisterns are patent. No extra-axial fluid collections. Ventricles are normal in size and shape. Brain: No midline shift. No intracranial masses or hemorrhage. Junior-white matter interface is normal. Skull and face: Calvarium and visualized facial bones are intact, without suspicious lesions. Sinuses: Visualized sinuses and mastoids are clear. IMPRESSION: 1. No acute intracranial process. Dictated by: Dione Wilkins M.D. on 07/04/2023 at 8:11 Approved by: Dione Wilkins M.D. on 07/04/2023 at 8:13
--- NOTE | 2023-07-04 07:31 | DI.MRI.S_ITS ---
PROCEDURE: MR THORACIC SPINE WO/W CON INDICATIONS: can't walk TECHNIQUE: Noncontrast sagittal T1 spin echo and T2 fast spin echo, sagittal STIR, axial T1 and T2 fast spin echo through the thoracic spine. After the administration of contrast, axial and sagittal T1 spin echo with fat saturation through the thoracic spine. COMPARISON: [facility], CT, CT ABDOMEN PELVIS W CON, 07/04/2023, 10:13. [facility], MR, MR LUMBAR SPINE WO/W CON, 07/04/2023, 10:18. [facility], MR, MR LUMBAR SPINE WO/W CON, 06/28/2023, 12:14. FINDINGS: Image quality: Excellent. Alignment and curvature: There is normal bony alignment. Marrow: There is a subtle area of vague decreased T1 signal and increased T2 signal with enhancement present in the right posterior inferior aspect of the T6 vertebral body. Extends minimally into the pedicle. The lesion measures approximately 1.3 x 1.1 cm on axial post gadolinium image 29 of series 20. Based on the CT of the abdomen and pelvis, the signal abnormality may be secondary to degenerative arthritis at the right [address] image 3 of series 2. 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 Reference CT image 4 of series 2 and post gadolinium sagittal image 6 of series 19.. No acute vertebral body compression fractures. Spinal cord: Visualized spinal cord is of normal signal and size, without abnormal enhancement. Paraspinous soft tissues: No paravertebral masses or abnormal enhancement. Miscellaneous: Central canal and foramina appear widely patent at all scanned levels. IMPRESSION: 1. No canal stenosis or foraminal stenosis. 2. Subtle signal abnormalities with enhancement in the right posterior inferior aspect of T6 and left posterior inferior aspect of T7 appear to potentially be related to degenerative arthritis involving the right costovertebral junction of T6 and the left costovertebral junction of T7. These are less likely related to metastatic lesions. They are not consistent with an infectious process. Dictated by: Ephraim Wilde M.D. on 07/04/2023 at 11:56 Approved by: Ephraim Wilde M.D. on 07/04/2023 at 12:10
[2023-07-04 07:43] LABS: C-Reactive Protein Quant 385.9 mg/dL (<1.0)
[2023-07-04] MEDS: METHADONE 10 MG TABLET 40 MG PO (08:08)
--- NOTE | 2023-07-04 08:14 | PC.NURSE ---
lower extremity pain; worse at hips and w/ flexion. pt states he is unable to lift both legs and has been crawling around his house to get around.
--- NOTE | 2023-07-04 09:43 | DI.CT.S_ITS ---
PROCEDURE: CT ABDOMEN PELVIS W CON INDICATIONS: sever right hip pain very high ESR TECHNIQUE: After the administration of intravenous contrast, axial sections acquired from the lung bases to the pubic symphysis. Coronal and sagittal reformats were performed. For radiation dose reduction, the following was used: automated exposure control, adjustment of mA and/or kV according to patient size. COMPARISON: None. FINDINGS: Image quality: Diagnostic. Lower Chest: Small hiatal hernia. Otherwise unremarkable. ABDOMEN: Liver: No solid mass. Gallbladder: No radiopaque gallstones or wall thickening. Biliary ducts: No biliary dilation. Pancreas: No ductal dilation. Spleen: Size is within normal limits. Adrenal Glands: No adrenal nodules. Kidneys and Ureters: No hydronephrosis. No solid mass. No complex renal cystic lesion which requires follow up. Stomach and Bowel: Normal colonic caliber, without significant wall thickening. Moderate right colonic fecal debris. Peritoneum: No abnormal intraperitoneal fluid. No free air. Ventral Wall: No significant ventral hernia. Abdominal Nodes: No retroperitoneal or mesenteric adenopathy by size criteria. Vessels: Aorta and inferior vena cava are normal in size. PELVIS: Pelvic Organs: Unremarkable. Bladder: No bladder wall thickening, accounting for underdistention. Pelvic Nodes: No enlarged lymph nodes. Miscellaneous: No inguinal hernias are seen. Bones: No aggressive osseous abnormality. No acute abnormality involving the right hip. IMPRESSION: 1. No acute abdominal process noted. 2. No abnormality identified involving the right hip. 3. Mild hiatal hernia incidentally noted. Dictated by: Ephraim Wilde M.D. on 07/04/2023 at 10:35 Approved by: Ephraim Wilde M.D. on 07/04/2023 at 10:38
[2023-07-04 10:15] LABS: Erythrocyte Sedimentation Rate 93 MM/HR (0-15)
[2023-07-04] MEDS: LORazepam 2 MG/ML INJ 1 MG IV (10:48)
[2023-07-04 13:02] LABS: Procalcitonin 0.417 ng/mL (<0.5)
[2023-07-04 13:25] LABS: C-Reactive Protein Quant 25.4 mg/dL (<1.0)
[2023-07-04] MEDS: predniSONE 20 MG TABLET 60 MG PO (14:06)
[2023-07-07 13:56] LABS: Osmolality, Serum 280 mOsmol/kg (275-295)
== END 2023-07-04 14:33 | disposition home or self-care (01) ==
PROVIDERS: Emergency Medicine; Emergency Provider Emergency Medicine
DX: M60.9 Myositis, unspecified (principal)
CPT/HCPCS: 36415; 70450; 72157; 72158; 74177; 80053; 80305; 80320; 80329; 81001; 81003; 82140; 82550; 83605; 83930; 84145; 84146; 84443; 85025; 85610; 85651; 85730; 86140; 87040; 87086; 96361; 96374; 99284; A9579; G0480; J2060; Q9967